=== PATIENT | male | born 1960 | race Caucasian/White ===

== ENCOUNTER 2021-06-30 13:24 | Inpatient (IN) | payer OTHER ==
[~2021-06-30] VITALS: Ht 177.8 cm; Wt 192.8 kg
[2021-06-30] MEDS ORDERED: ONDANSETRON HCL INJ 2MG/ML 2ML 2 MG/ML VIAL IV PRN ×3 (13:45→20:15)
[2021-06-30 14:11] LABS: BASOPHILS % 0.2 % (0.0-1.0); HEMOGLOBIN 16.1 g/dL (14.0-18.0); LYMPHOCYTES # (AUTO) 0.6 (1.0-3.2); LYMPHOCYTES % 3.7 % (18.0-39.1); MEAN CORPUSCULAR HEMOGLOBIN 32.2 pg (28-32); MEAN CORPUSCULAR HGB CONC 34.3 g/dL (31-35); MONOCYTES # (AUTO) 1.8 (0.2-0.8); MONOCYTES % 11.6 % (4.4-11.3); NEUTROPHILS # (AUTO) 12.8 (2.1-6.9); NEUTROPHILS % 83.5 % (38.7-80.0); PLATELET COUNT 94 x10e3/uL (140-360); RED CELL DISTRIBUTION WIDTH 13.2 % (11.7-14.4)
[2021-06-30 14:27] LABS: ALBUMIN 2.8 g/dL (3.5-5.0); ALBUMIN/GLOBULIN RATIO 0.7 (0.8-2.0); ANION GAP 9.7 mmol/L (8-16); CALCIUM 8.4 mg/dL (8.4-10.2); CREATININE, SERUM 1.14 mg/dL (0.72-1.25); POTASSIUM 3.7 mmol/L (3.5-5.1)
[2021-06-30 14:31] LABS: CLARITY,URINE SL CLOUDY (CLEAR); COLOR,URINE AMBER (YELLOW); KETONES,URINE NEGATIVE (NEGATIVE); LEUKOCYTE ESTERASE ,URINE NEGATIVE (NEGATIVE); NITRITE,URINE NEGATIVE (NEGATIVE); PROTEIN,URINE DIPSTICK NEGATIVE (NEGATIVE); URINE UROBILINOGEN 1 mg/dL (0.2 - 1)
[2021-06-30 14:44] LABS: BACTERIA,URINE MODERATE /HPF; RBC,URINE 0-5 /HPF (0-5)
[2021-06-30] MEDS ORDERED: SODIUM CHLORIDE 0.9% 1000ML 1,000 ML IV SCH ×2 (14:45→15:45)
[2021-06-30] MEDS: CEFEPIME 1 GM in SODIUM CHLORIDE 0.9% 50ML 50 ML IV SCH (15:55)
[2021-06-30] MEDS ORDERED: ALBUTEROL SULFATE HFA 8GM INHALATION AEROSOL INH PRN (16:00)
[2021-06-30] MEDS ORDERED: ALBUTEROL SULF 0.083% NEB SOLN 3 ML NEB NEB PRN (16:00)
[2021-06-30 16:09] LABS: INR 1.42; PROTHROMBIN TIME 18.5 seconds (11.9-14.5)
[2021-06-30 16:10] LABS: PARTIAL THROMBOPLASTIN TIME 33.5 seconds (23.8-35.5)
[2021-06-30] MEDS ORDERED: IOPAMIDOL 370 MG/ML 100 ML INFUS..BTL INJ ONE (16:41)
[2021-06-30] MEDS ORDERED: SODIUM CHLORIDE 0.9% 50ML 50 ML ONE (16:41)
[2021-06-30] MEDS ORDERED: PHYTONADIONE 10 MG/ML AMP IV ONE (17:00)
[2021-06-30 18:12] LABS: BASOPHILS % 0.2 % (0.0-1.0); HEMATOCRIT 47.1 % (38.2-49.6); HEMOGLOBIN 16.5 g/dL (14.0-18.0); LYMPHOCYTES # (AUTO) 0.5 (1.0-3.2); LYMPHOCYTES % 3.7 % (18.0-39.1); MEAN CORPUSCULAR HEMOGLOBIN 33.1 pg (28-32); MEAN CORPUSCULAR VOLUME 94.4 fL (81-99); MONOCYTES # (AUTO) 0.4 (0.2-0.8); MONOCYTES % 2.7 % (4.4-11.3); NEUTROPHILS % 92.1 % (38.7-80.0); RED BLOOD COUNT 4.99 x10e6/uL (4.3-5.7); RED CELL DISTRIBUTION WIDTH 13.2 % (11.7-14.4)
[2021-06-30 18:13] LABS: PLATELET COUNT 94 x10e3/uL (140-360)
[2021-06-30] MEDS ORDERED: BUDESONIDE/FORMOTEROL 160/4.5MCG INHALER INH SCH (19:00)
[2021-06-30 19:38] VITALS: BP 146/73
[2021-06-30 19:44] VITALS: BP 146/73
[2021-06-30] MEDS ORDERED: PHYTONADIONE 10MG/ML 20 MG in SODIUM CHLORIDE 0.9% 50ML 50 ML IV ONE (20:00)
[2021-06-30] MEDS ORDERED: ALBUTEROL/IPRATROPIUM 3 ML NEB NEB PRN (20:15)
[2021-06-30] MEDS: FUROSEMIDE INJ 10 MG/ML 4 ML VIAL IV SCH ×2 (20:49→21:16)
[2021-06-30] MEDS: METHYLPREDNISOLONE SOD SUCC 40 MG/ML VIAL 1ML IV SCH (20:50)
[2021-06-30] MEDS ORDERED: ZOLPIDEM TARTRATE 5 MG TAB PO PRN (21:00)
[2021-06-30] MEDS: ALBUTEROL/IPRATROPIUM 3 ML NEB NEB SCH (21:26)
[2021-06-30] MEDS ORDERED: ACETAMINOPHEN 325 MG TAB PO PRN (21:30)
[2021-06-30 22:03] VITALS: BP 146/73
[2021-07-01] VITALS (7 sets, daily range): BP systolic 98–146; BP diastolic 53–83
[2021-07-01] MEDS: ALBUTEROL/IPRATROPIUM 3 ML NEB NEB SCH ×5 (00:14→23:37)
[2021-07-01] MEDS ORDERED: OCTREOTIDE ACETATE 0.05 MG/ML AMP IV ONE (01:45)
[2021-07-01] MEDS ORDERED: OCTREOTIDE ACETATE 500 MCG in SODIUM CHLORIDE 0.9% 250ML 249 ML IV SCH (01:45)
[2021-07-01] MEDS: CEFEPIME 1 GM in SODIUM CHLORIDE 0.9% 50ML 50 ML IV SCH ×2 (02:32→15:10)
[2021-07-01] MEDS: OCTREOTIDE ACETATE 500 MCG in SODIUM CHLORIDE 0.9% 250ML 250 ML IV SCH ×3 (03:45→20:41)
[2021-07-01] MEDS: FUROSEMIDE INJ 10 MG/ML 4 ML VIAL IV SCH ×3 (05:29→21:09)
[2021-07-01 05:30] LABS: BASOPHILS % 0.1 % (0.0-1.0); HEMATOCRIT 47.8 % (38.2-49.6); HEMOGLOBIN 16.1 g/dL (14.0-18.0); LYMPHOCYTES # (AUTO) 0.6 (1.0-3.2); MEAN CORPUSCULAR HEMOGLOBIN 32.5 pg (28-32); MEAN CORPUSCULAR HGB CONC 33.7 g/dL (31-35); MEAN CORPUSCULAR VOLUME 96.4 fL (81-99); MONOCYTES # (AUTO) 0.9 (0.2-0.8); MONOCYTES % 6.1 % (4.4-11.3); NEUTROPHILS # (AUTO) 12.6 (2.1-6.9); NEUTROPHILS % 88.5 % (38.7-80.0); PLATELET COUNT 86 x10e3/uL (140-360); RED BLOOD COUNT 4.96 x10e6/uL (4.3-5.7); RED CELL DISTRIBUTION WIDTH 13.3 % (11.7-14.4)
[2021-07-01 05:41] LABS: INR 1.27
[2021-07-01 05:44] LABS: ANION GAP 11.5 mmol/L (8-16); CALCIUM 8.3 mg/dL (8.4-10.2); CREATININE, SERUM 1.07 mg/dL (0.72-1.25); POTASSIUM 4.5 mmol/L (3.5-5.1)
[2021-07-01] MEDS ORDERED: Morphine 4mg Syringe 4 MG/ML INJ IV PRN (09:00)
[2021-07-01] MEDS: LIDOCAINE 4% PATCH TP SCH (09:36)
[2021-07-01] MEDS: METHYLPREDNISOLONE SOD SUCC 40 MG/ML VIAL 1ML IV SCH ×2 (09:36→20:41)
[2021-07-01] MEDS ORDERED: LIDOCAINE HCL 2% LOCAL INJ 5 ML SDV VIAL INJ ONE (11:52)
[2021-07-01] MEDS ORDERED: PROPOFOL IV EMULSION 10 MG/ML 20 ML VIAL ONE (11:52)
[2021-07-01] MEDS ORDERED: BENZOCAINE/TETRACAINE/BUTAMBEN AERO SPRAY 56 GM CAN ONE (12:19)
[2021-07-01] MEDS: HYDROCODONE/APAP 10MG-325MG TAB PO PRN ×2 (13:44→20:41)
[2021-07-01] MEDS ORDERED: SODIUM CHLORIDE 0.9% 250ML 250 ML ONE (15:13)
[2021-07-01] MEDS: PROPRANOLOL HCL 10 MG TAB PO SCH (16:00)
[2021-07-02] VITALS (9 sets, daily range): BP systolic 113–142; BP diastolic 55–99
[2021-07-02] MEDS: CEFEPIME 1 GM in SODIUM CHLORIDE 0.9% 50ML 50 ML IV SCH (02:22)
[2021-07-02] MEDS: OCTREOTIDE ACETATE 500 MCG in SODIUM CHLORIDE 0.9% 250ML 250 ML IV SCH ×3 (02:30→17:42)
[2021-07-02] MEDS: FUROSEMIDE INJ 10 MG/ML 4 ML VIAL IV SCH ×2 (05:43→12:16)
[2021-07-02 06:12] LABS: BASOPHILS % 0.2 % (0.0-1.0); HEMATOCRIT 46.6 % (38.2-49.6); HEMOGLOBIN 15.5 g/dL (14.0-18.0); LYMPHOCYTES # (AUTO) 0.8 (1.0-3.2); LYMPHOCYTES % 6.3 % (18.0-39.1); MEAN CORPUSCULAR HEMOGLOBIN 32.2 pg (28-32); MEAN CORPUSCULAR HGB CONC 33.3 g/dL (31-35); MEAN CORPUSCULAR VOLUME 96.9 fL (81-99); MONOCYTES % 7.7 % (4.4-11.3); NEUTROPHILS # (AUTO) 11.3 (2.1-6.9); NEUTROPHILS % 85.1 % (38.7-80.0); PLATELET COUNT 95 x10e3/uL (140-360); RED BLOOD COUNT 4.81 x10e6/uL (4.3-5.7); RED CELL DISTRIBUTION WIDTH 13.4 % (11.7-14.4)
[2021-07-02 06:29] LABS: ANION GAP 11.6 mmol/L (8-16); CREATININE, SERUM 1.13 mg/dL (0.72-1.25); POTASSIUM 4.6 mmol/L (3.5-5.1)
[2021-07-02] MEDS: ALBUTEROL/IPRATROPIUM 3 ML NEB NEB SCH ×3 (06:50→19:00)
[2021-07-02] MEDS ORDERED: LEVOFLOXACIN 500 MG TAB PO NR (10:00)
[2021-07-02] MEDS ORDERED: LEVOFLOXACIN 500 MG TAB PO SCH (10:00)
[2021-07-02] MEDS: HYDROCODONE/APAP 10MG-325MG TAB PO PRN (10:33)
[2021-07-02] MEDS: METHYLPREDNISOLONE SOD SUCC 40 MG/ML VIAL 1ML IV SCH ×2 (10:35→21:07)
[2021-07-02] MEDS: PROPRANOLOL HCL 10 MG TAB PO SCH ×2 (10:35→17:03)
[2021-07-02] MEDS: LIDOCAINE 4% PATCH TP SCH (10:36)
[2021-07-03] VITALS (8 sets, daily range): BP systolic 103–136; BP diastolic 57–83
[2021-07-03] MEDS: ALBUTEROL/IPRATROPIUM 3 ML NEB NEB SCH ×5 (02:00→23:49)
[2021-07-03] MEDS: OCTREOTIDE ACETATE 500 MCG in SODIUM CHLORIDE 0.9% 250ML 250 ML IV SCH (03:43)
[2021-07-03 06:03] LABS: BASOPHILS % 0.1 % (0.0-1.0); HEMATOCRIT 45.4 % (38.2-49.6); HEMOGLOBIN 15.3 g/dL (14.0-18.0); LYMPHOCYTES # (AUTO) 0.9 (1.0-3.2); LYMPHOCYTES % 10.6 % (18.0-39.1); MEAN CORPUSCULAR HEMOGLOBIN 32.6 pg (28-32); MEAN CORPUSCULAR HGB CONC 33.7 g/dL (31-35); MEAN CORPUSCULAR VOLUME 96.6 fL (81-99); MONOCYTES # (AUTO) 0.6 (0.2-0.8); MONOCYTES % 6.9 % (4.4-11.3); NEUTROPHILS # (AUTO) 6.9 (2.1-6.9); NEUTROPHILS % 81.9 % (38.7-80.0); PLATELET COUNT 112 x10e3/uL (140-360); RED CELL DISTRIBUTION WIDTH 13.4 % (11.7-14.4)
[2021-07-03 06:35] LABS: ALBUMIN 2.7 g/dL (3.5-5.0); ALBUMIN/GLOBULIN RATIO 0.7 (0.8-2.0); ANION GAP 8.3 mmol/L (8-16); CALCIUM 7.7 mg/dL (8.4-10.2); CREATININE, SERUM 0.95 mg/dL (0.72-1.25); POTASSIUM 4.3 mmol/L (3.5-5.1)
[2021-07-03] MEDS: FUROSEMIDE INJ 10 MG/ML 4 ML VIAL IV SCH ×2 (08:49→11:32)
[2021-07-03] MEDS: LIDOCAINE 4% PATCH TP SCH (08:50)
[2021-07-03] MEDS: METHYLPREDNISOLONE SOD SUCC 40 MG/ML VIAL 1ML IV SCH ×2 (08:50→20:59)
[2021-07-03] MEDS: PROPRANOLOL HCL 10 MG TAB PO SCH ×2 (08:50→17:31)
[2021-07-03] MEDS: HYDROCODONE/APAP 10MG-325MG TAB PO PRN (08:57)
[2021-07-03] MEDS: PANTOPRAZOLE SOD 40 MG TABEC PO SCH ×2 (11:30→17:31)
[2021-07-03] MEDS: LEVOFLOXACIN 500 MG TAB PO SCH (11:30)
[2021-07-03] MEDS: SUCRALFATE 1 GM TAB PO SCH ×3 (11:31→22:02)
[2021-07-04] VITALS: BP 133/76
[2021-07-04] MEDS: HYDROCODONE/APAP 10MG-325MG TAB PO PRN (03:59)
[2021-07-04 04:00] VITALS: BP 140/86
[2021-07-04] MEDS: ALBUTEROL/IPRATROPIUM 3 ML NEB NEB SCH ×2 (07:00→13:00)
[2021-07-04] MEDS ORDERED: PANTOPRAZOLE SOD 40 MG TABEC PO SCH (07:30)
[2021-07-04 08:20] VITALS: BP 124/65
[2021-07-04 08:23] VITALS: BP 124/65
[2021-07-04] MEDS: SUCRALFATE 1 GM TAB PO SCH ×3 (08:55→17:38)
[2021-07-04] MEDS: METHYLPREDNISOLONE SOD SUCC 40 MG/ML VIAL 1ML IV SCH (08:56)
[2021-07-04] MEDS: FUROSEMIDE INJ 10 MG/ML 4 ML VIAL IV SCH ×2 (08:56→11:26)
[2021-07-04] MEDS: PANTOPRAZOLE SOD 40 MG TABEC PO SCH ×2 (08:56→17:38)
[2021-07-04] MEDS: LIDOCAINE 4% PATCH TP SCH (08:56)
[2021-07-04] MEDS: LEVOFLOXACIN 500 MG TAB PO SCH (08:57)
[2021-07-04] MEDS: PROPRANOLOL HCL 10 MG TAB PO SCH ×2 (08:57→17:38)
[2021-07-04 11:43] VITALS: BP 119/72
[2021-07-04 16:10] VITALS: BP 127/66
[2021-07-04] MEDS ORDERED: XIFAXAN550 MG PO (17:04)
[2021-07-04] MEDS ORDERED: LASIX40 MG PO (17:04)
[2021-07-04] MEDS ORDERED: CARAFATE1 GM/10 ML PO (17:05)
[2021-07-04] MEDS ORDERED: PANTOPRAZOLE SO40 MG PO (17:05)
[2021-07-04] MEDS ORDERED: TRELEGY ELLIPT1 EACH INH (17:25)
[2021-07-04] MEDS ORDERED: PROAIR HFA INH8.5 GM INH (17:26)
[2021-07-04] MEDS ORDERED: INDERAL10 MG PO (17:26)
[2021-07-04] MEDS ORDERED: TRAMADOL HCL100 MG PO (17:27)
[2021-07-04] MEDS ORDERED: tessalon perles PO (17:28)
[2021-07-04] MEDS ORDERED: medrol dose pack (17:28)
[2021-07-04] MEDS ORDERED: ONDANSETRON HCL 4 MG ORAL DISINTEGRATING TAB PO PRN (18:00)
== END 2021-07-04 18:29 | disposition home or self-care (01) | DRG 871 ==
LOC: ER 13:33 → ERHOLD 15:40 → MED/SURG2 17:48
PROVIDERS: ADMIT Internal Medicine; ATTEND Internal Medicine
PROC: 3E03329 Introduction of Other Anti-infective into Peripheral Vein, Percutaneous Approach (ICD-10-PCS; principal; 2021-06-30)
PROC: 0DB68ZX Excision of Stomach, Via Natural or Artificial Opening Endoscopic, Diagnostic (ICD-10-PCS; 2021-07-01 12:16)
PROC: 06L38CZ Occlusion of Esophageal Vein with Extraluminal Device, Via Natural or Artificial Opening Endoscopic (ICD-10-PCS; 2021-07-01 12:16)
DX: A41.9 Sepsis, unspecified organism (principal); I50.33 Acute on chronic diastolic (congestive) heart failure; I85.01 Esophageal varices with bleeding; N39.0 Urinary tract infection, site not specified; K76.6 Portal hypertension; Z68.44 Body mass index [BMI] 60.0-69.9, adult; J44.1 Chronic obstructive pulmonary disease with (acute) exacerbation; N41.0 Acute prostatitis; I11.0 Hypertensive heart disease with heart failure; E78.5 Hyperlipidemia, unspecified; E66.01 Morbid (severe) obesity due to excess calories; R06.89 Other abnormalities of breathing; K31.89 Other diseases of stomach and duodenum; K44.9 Diaphragmatic hernia without obstruction or gangrene; K31.7 Polyp of stomach and duodenum; K26.9 Duodenal ulcer, unspecified as acute or chronic, without hemorrhage or perforation; G47.33 Obstructive sleep apnea (adult) (pediatric); K70.30 Alcoholic cirrhosis of liver without ascites; F10.10 Alcohol abuse, uncomplicated; R09.02 Hypoxemia; D69.6 Thrombocytopenia, unspecified; Z20.822 Contact with and (suspected) exposure to COVID-19
CPT/HCPCS: 36415; 43239; 43255; 71045; 71250; 74177; 80048; 80053; 81001; 82948; 83036; 83605; 83690; 83880; 85025; 85610; 85730; 87040; 87521; 88304; 88305; 88312; 93005; 93306; 94799; 99285; J0456; J0692; J1940; J2001; J2353; J2354; J2405; J2920; J3430; J7030; J7050; Q9967; U0002

== ENCOUNTER 2022-01-21 03:08 | Inpatient (IN) | payer OTHER ==
[~2022-01-21] VITALS: Ht 180.3 cm; Wt 192.8 kg
[~2022-01-21 03:08] MED LIST: CARAFATE1 GM/10 ML PO; INDERAL10 MG PO; LASIX40 MG PO; PANTOPRAZOLE SO40 MG PO; PROAIR HFA INH8.5 GM INH; TRAMADOL HCL100 MG PO; TRELEGY ELLIPT1 EACH INH; XIFAXAN550 MG PO; medrol dose pack; tessalon perles PO
[2022-01-21] MEDS ORDERED: ACETAMINOPHEN 325 MG TAB PO ONE (03:15)
[2022-01-21 03:38] LABS: BASOPHILS % 0.5 % (0.0-1.0); EOSINOPHILS # (AUTO) 0.4 (0.0-0.4); EOSINOPHILS % 4.7 % (0.0-6.0); HEMOGLOBIN 15.6 g/dL (14.0-18.0); LYMPHOCYTES # (AUTO) 1.4 (1.0-3.2); LYMPHOCYTES % 16.8 % (18.0-39.1); MEAN CORPUSCULAR HGB CONC 33.2 g/dL (31-35); MEAN CORPUSCULAR VOLUME 96.3 fL (81-99); MONOCYTES # (AUTO) 1.7 (0.2-0.8); NEUTROPHILS # (AUTO) 4.6 (2.1-6.9); NEUTROPHILS % 56.6 % (38.7-80.0); PLATELET COUNT 107 x10e3/uL (140-360); RED BLOOD COUNT 4.88 x10e6/uL (4.3-5.7); RED CELL DISTRIBUTION WIDTH 13.3 % (11.7-14.4)
[2022-01-21 03:55] LABS: ALBUMIN 2.8 g/dL (3.5-5.0); ALBUMIN/GLOBULIN RATIO 0.7 (0.8-2.0); ANION GAP 13.1 mmol/L (8-16); CALCIUM 8.4 mg/dL (8.4-10.2); CREATININE, SERUM 0.83 mg/dL (0.72-1.25); POTASSIUM 4.1 mmol/L (3.5-5.1)
[2022-01-21 04:01] LABS: CREATINE KINASE MB 2.9 ng/mL (0-5.0)
[2022-01-21] MEDS ORDERED: DEXAMETHASONE SOD PHOS 10 MG/1 ML VIAL IV STA (04:12)
[2022-01-21] MEDS ORDERED: SODIUM CHLORIDE FLUSH 10 ML SYR INJ PRN (04:15)
[2022-01-21] MEDS ORDERED: ACETAMINOPHEN 325 MG TAB PO PRN (04:15)
[2022-01-21] MEDS ORDERED: ONDANSETRON HCL INJ 2MG/ML 2ML 2 MG/ML VIAL IV PRN (04:15)
[2022-01-21] MEDS: ALBUTEROL/IPRATROPIUM 3 ML NEB NEB SCH ×5 (06:30→23:55)
[2022-01-21 08:00] VITALS: BP 159/85
[2022-01-21 08:01] VITALS: BP 159/85
[2022-01-21 08:21] VITALS: BP 159/85
[2022-01-21 09:51] LABS: CREATINE KINASE MB 2.9 ng/mL (0-5.0)
[2022-01-21] MEDS: FUROSEMIDE INJ 10 MG/ML 4 ML VIAL IV SCH ×2 (10:01→21:31)
[2022-01-21 11:23] VITALS: BP 158/82
[2022-01-21] MEDS ORDERED: REMDESIVIR 200MG 200 MG in SODIUM CHLORIDE 0.9% 100 ML IV ONE (15:00)
[2022-01-21 15:57] VITALS: BP 158/80
[2022-01-21 18:00] LABS: CREATINE KINASE MB 2.8 ng/mL (0-5.0)
[2022-01-21 20:00] VITALS: BP 177/93
[2022-01-21] MEDS ORDERED: DEXAMETHASONE SOD PHOS 10 MG/1 ML VIAL IV SCH (21:00)
[2022-01-21] MEDS: HYDROCODONE/APAP 5MG-325MG TAB PO PRN (21:31)
[2022-01-21] MEDS: ENOXAPARIN SOD INJ 40 MG/0.4 ML SYR SC SCH (21:31)
[2022-01-22] VITALS (7 sets, daily range): BP systolic 127–154; BP diastolic 65–97
[2022-01-22] MEDS: HYDROCODONE/APAP 5MG-325MG TAB PO PRN ×2 (01:18→09:02)
[2022-01-22] MEDS: ALBUTEROL/IPRATROPIUM 3 ML NEB NEB SCH ×6 (03:00→23:15)
[2022-01-22] MEDS: DEXAMETHASONE SOD PHOS 10 MG/1 ML VIAL IV SCH (04:43)
[2022-01-22 07:17] LABS: BASOPHILS % 0.1 % (0.0-1.0); HEMATOCRIT 46.1 % (38.2-49.6); HEMOGLOBIN 15.3 g/dL (14.0-18.0); LYMPHOCYTES % 11.7 % (18.0-39.1); MEAN CORPUSCULAR HEMOGLOBIN 31.7 pg (28-32); MEAN CORPUSCULAR HGB CONC 33.2 g/dL (31-35); MEAN CORPUSCULAR VOLUME 95.4 fL (81-99); MONOCYTES # (AUTO) 0.8 (0.2-0.8); NEUTROPHILS # (AUTO) 6.4 (2.1-6.9); PLATELET COUNT 115 x10e3/uL (140-360); RED BLOOD COUNT 4.83 x10e6/uL (4.3-5.7); RED CELL DISTRIBUTION WIDTH 12.7 % (11.7-14.4)
[2022-01-22 07:52] LABS: ALBUMIN 2.9 g/dL (3.5-5.0); ALBUMIN/GLOBULIN RATIO 0.7 (0.8-2.0); CALCIUM 8.4 mg/dL (8.4-10.2); CREATININE, SERUM 0.77 mg/dL (0.72-1.25)
[2022-01-22] MEDS: FUROSEMIDE INJ 10 MG/ML 4 ML VIAL IV SCH ×2 (08:21→20:21)
[2022-01-22] MEDS: ENOXAPARIN SOD INJ 40 MG/0.4 ML SYR SC SCH ×2 (08:22→20:21)
[2022-01-22 09:36] LABS: CREATINE KINASE MB 2.2 ng/mL (0-5.0)
[2022-01-22] MEDS: REMDESIVIR 100MG 100 MG in SODIUM CHLORIDE 0.9% 100 ML IV SCH (14:32)
[2022-01-22] MEDS: TRAMADOL HCL 50 MG TAB PO PRN (18:41)
[2022-01-23] MEDS: ALBUTEROL/IPRATROPIUM 3 ML NEB NEB SCH ×4 (03:10→15:00)
[2022-01-23 04:00] VITALS: BP 131/58
[2022-01-23] MEDS: DEXAMETHASONE SOD PHOS 10 MG/1 ML VIAL IV SCH (05:25)
[2022-01-23] MEDS: TRAMADOL HCL 50 MG TAB PO PRN ×2 (05:25→14:30)
[2022-01-23 05:42] LABS: HEMATOCRIT 47.1 % (38.2-49.6); HEMOGLOBIN 15.7 g/dL (14.0-18.0); LYMPHOCYTES # (AUTO) 1.2 (1.0-3.2); LYMPHOCYTES % 13.2 % (18.0-39.1); MEAN CORPUSCULAR HEMOGLOBIN 32.1 pg (28-32); MEAN CORPUSCULAR HGB CONC 33.3 g/dL (31-35); MEAN CORPUSCULAR VOLUME 96.3 fL (81-99); MONOCYTES # (AUTO) 0.8 (0.2-0.8); MONOCYTES % 8.9 % (4.4-11.3); NEUTROPHILS % 77.6 % (38.7-80.0); PLATELET COUNT 120 x10e3/uL (140-360); RED BLOOD COUNT 4.89 x10e6/uL (4.3-5.7); RED CELL DISTRIBUTION WIDTH 13.2 % (11.7-14.4)
[2022-01-23 06:23] LABS: ALBUMIN 2.7 g/dL (3.5-5.0); ALBUMIN/GLOBULIN RATIO 0.7 (0.8-2.0); ANION GAP 10.2 mmol/L (8-16); CALCIUM 8.2 mg/dL (8.4-10.2); CREATININE, SERUM 0.82 mg/dL (0.72-1.25); POTASSIUM 4.2 mmol/L (3.5-5.1)
[2022-01-23] MEDS: FUROSEMIDE INJ 10 MG/ML 4 ML VIAL IV SCH (08:19)
[2022-01-23 08:33] VITALS: BP 142/93
[2022-01-23] MEDS ORDERED: LASIX40 MG PO (08:34)
[2022-01-23] MEDS ORDERED: ULTRAM 50MG50 MG PO (08:34)
[2022-01-23] MEDS ORDERED: BROMFED DM COU118 ML PO (08:34)
[2022-01-23] MEDS ORDERED: AMOX TR-K CLV1 EAC2 PO (08:34)
[2022-01-23] MEDS ORDERED: DEXAMETHASONE4 MG PO (08:34)
[2022-01-23 08:37] VITALS: BP 142/93
[2022-01-23] MEDS: ENOXAPARIN SOD INJ 40 MG/0.4 ML SYR SC SCH (08:39)
[2022-01-23] MEDS: REMDESIVIR 100MG 100 MG in SODIUM CHLORIDE 0.9% 100 ML IV SCH (09:41)
[2022-01-23 12:02] VITALS: BP 126/57
[2022-01-23] MEDS ORDERED: ONDANSETRON HCL 4 MG ORAL DISINTEGRATING TAB PO PRN (12:45)
[2022-01-23 16:02] VITALS: BP 145/73
[2022-01-23] MEDS ORDERED: FUROSEMIDE 40 MG TAB PO SCH (21:00)
[2022-01-24] MEDS ORDERED: AZITHROMYCIN 250 MG TAB PO SCH (06:00)
== END 2022-01-23 19:02 | disposition home or self-care (01) | DRG 177 ==
LOC: ER 03:12 → ERHOLD 04:19 → MED/SURG3 07:49
PROVIDERS: ADMIT Internal Medicine; ATTEND Internal Medicine
PROC: 8E0ZXY6 Isolation (ICD-10-PCS; 2022-01-21)
PROC: XW043E5 Introduction of Remdesivir Anti-infective into Central Vein, Percutaneous Approach, New Technology Group 5 (ICD-10-PCS; principal; 2022-01-22)
DX: U07.1 COVID-19 (principal); J12.82 Pneumonia due to coronavirus disease 2019; J96.01 Acute respiratory failure with hypoxia; Z68.43 Body mass index [BMI] 50.0-59.9, adult; J44.1 Chronic obstructive pulmonary disease with (acute) exacerbation; E66.2 Morbid (severe) obesity with alveolar hypoventilation; K21.9 Gastro-esophageal reflux disease without esophagitis; J44.9 Chronic obstructive pulmonary disease, unspecified; E66.9 Obesity, unspecified; B18.2 Chronic viral hepatitis C; B19.20 Unspecified viral hepatitis C without hepatic coma; K70.30 Alcoholic cirrhosis of liver without ascites; Z87.19 Personal history of other diseases of the digestive system; Z86.19 Personal history of other infectious and parasitic diseases; N40.0 Benign prostatic hyperplasia without lower urinary tract symptoms; D69.59 Other secondary thrombocytopenia; I11.0 Hypertensive heart disease with heart failure; I50.9 Heart failure, unspecified
CPT/HCPCS: 36415; 71045; 80053; 82550; 82553; 83605; 83735; 83880; 84484; 85025; 87040; 87400; 93005; 94799; 99285; J0248; J0456; J0696; J1100; J1650; J1940; J7050

== ENCOUNTER 2022-04-27 20:42 | Inpatient (IN) | payer OTHER ==
[~2022-04-27] VITALS: Ht 180.3 cm; Wt 208.2 kg
[2022-04-27 20:00] VITALS: BP 157/88
[~2022-04-27 20:42] MED LIST changes: +AMOX TR-K CLV1 EAC2 PO; +BROMFED DM COU118 ML PO; +DEXAMETHASONE4 MG PO; +ULTRAM 50MG50 MG PO
[2022-04-27 21:57] VITALS: BP 157/88
[2022-04-27 22:28] LABS: BASOPHILS % 0.5 % (0.0-1.0); HEMATOCRIT 50.3 % (38.2-49.6); HEMOGLOBIN 16.2 g/dL (14.0-18.0); LYMPHOCYTES # (AUTO) 0.5 (1.0-3.2); LYMPHOCYTES % 12.3 % (18.0-39.1); MEAN CORPUSCULAR HEMOGLOBIN 31.7 pg (28-32); MEAN CORPUSCULAR HGB CONC 32.2 g/dL (31-35); MEAN CORPUSCULAR VOLUME 98.4 fL (81-99); MONOCYTES # (AUTO) 0.1 (0.2-0.8); MONOCYTES % 2.2 % (4.4-11.3); NEUTROPHILS # (AUTO) 3.5 (2.1-6.9); PLATELET COUNT 107 x10e3/uL (140-360); RED BLOOD COUNT 5.11 x10e6/uL (4.3-5.7)
[2022-04-27 22:46] LABS: ALBUMIN 3.3 g/dL (3.5-5.0); ALBUMIN/GLOBULIN RATIO 0.7 (0.8-2.0); ANION GAP 13.1 mmol/L (8-16); CALCIUM 8.9 mg/dL (8.4-10.2); CREATININE, SERUM 0.81 mg/dL (0.72-1.25); POTASSIUM 4.1 mmol/L (3.5-5.1)
[2022-04-27] MEDS ORDERED: ACETAMINOPHEN 325 MG TAB PO PRN (23:30)
[2022-04-28] VITALS (9 sets, daily range): BP systolic 114–160; BP diastolic 46–87
[2022-04-28] MEDS: ALBUTEROL/IPRATROPIUM 3 ML NEB NEB PRN (00:25)
[2022-04-28 07:41] LABS: ANION GAP 12.2 mmol/L (8-16); CALCIUM 8.5 mg/dL (8.4-10.2); CREATININE, SERUM 0.71 mg/dL (0.72-1.25); POTASSIUM 4.2 mmol/L (3.5-5.1)
[2022-04-28] MEDS: FUROSEMIDE INJ 10 MG/ML 2 ML VIAL IV SCH ×2 (09:29→18:15)
[2022-04-28] MEDS ORDERED: DOCUSATE SODIUM 100 MG CAP PO PRN (11:15)
[2022-04-28] MEDS ORDERED: ONDANSETRON HCL INJ 2MG/ML 2ML 2 MG/ML VIAL IV PRN (11:15)
[2022-04-28] MEDS: SUCRALFATE 1 GM/10 ML SUSP PO SCH ×3 (11:30→21:55)
[2022-04-28] MEDS: PANTOPRAZOLE SOD 40 MG TABEC PO SCH (18:14)
[2022-04-28] MEDS: PROPRANOLOL HCL 10 MG TAB PO SCH (18:15)
[2022-04-28] MEDS: RIFAXIMIN 550 MG TABLET PO SCH (18:15)
[2022-04-28] MEDS: TRAMADOL HCL 50 MG TAB PO PRN (18:22)
[2022-04-28] MEDS: PREDNISONE 20 MG TAB PO SCH (21:54)
[2022-04-28] MEDS ORDERED: SODIUM CHLORIDE 0.9% 250ML 250 ML ONE (22:02)
[2022-04-29] VITALS: BP 123/67
[2022-04-29] MEDS: ALBUTEROL/IPRATROPIUM 3 ML NEB NEB PRN (01:27)
[2022-04-29 04:00] VITALS: BP 136/74
[2022-04-29 05:55] LABS: BASOPHILS % 0.3 % (0.0-1.0); EOSINOPHILS % 0.5 % (0.0-6.0); HEMOGLOBIN 15.2 g/dL (14.0-18.0); LYMPHOCYTES # (AUTO) 1.1 (1.0-3.2); MEAN CORPUSCULAR HEMOGLOBIN 31.7 pg (28-32); MEAN CORPUSCULAR HGB CONC 33.8 g/dL (31-35); MEAN CORPUSCULAR VOLUME 93.8 fL (81-99); MONOCYTES # (AUTO) 0.6 (0.2-0.8); MONOCYTES % 9.8 % (4.4-11.3); NEUTROPHILS # (AUTO) 4.5 (2.1-6.9); NEUTROPHILS % 71.1 % (38.7-80.0); PLATELET COUNT 117 x10e3/uL (140-360); RED CELL DISTRIBUTION WIDTH 13.5 % (11.7-14.4)
[2022-04-29] MEDS ORDERED: VILANTER INH SCH (06:00)
[2022-04-29] MEDS ORDERED: FLUTICASONE INH SCH (06:00)
[2022-04-29] MEDS ORDERED: UMECLIDIN INH SCH (06:00)
[2022-04-29 06:33] LABS: ALBUMIN 2.9 g/dL (3.5-5.0); ALBUMIN/GLOBULIN RATIO 0.8 (0.8-2.0); ANION GAP 10.1 mmol/L (8-16); CALCIUM 8.6 mg/dL (8.4-10.2); CREATININE, SERUM 0.79 mg/dL (0.72-1.25); MAGNESIUM 1.9 MG/DL (1.3-2.1); POTASSIUM 4.1 mmol/L (3.5-5.1)
[2022-04-29 08:00] VITALS: BP 127/72
[2022-04-29] MEDS: PANTOPRAZOLE SOD 40 MG TABEC PO SCH (08:30)
[2022-04-29] MEDS: SUCRALFATE 1 GM/10 ML SUSP PO SCH ×2 (08:30→11:30)
[2022-04-29 08:32] VITALS: BP 127/72
[2022-04-29] MEDS ORDERED: DOCUSATE SODIUM 100 MG CAP PO SCH (09:00)
[2022-04-29] MEDS ORDERED: SENNOSIDES 8.6 MG TAB PO SCH (09:00)
[2022-04-29] MEDS: PROPRANOLOL HCL 10 MG TAB PO SCH (09:19)
[2022-04-29] MEDS: FUROSEMIDE INJ 10 MG/ML 2 ML VIAL IV SCH (09:19)
[2022-04-29] MEDS: RIFAXIMIN 550 MG TABLET PO SCH (09:19)
[2022-04-29] MEDS: PREDNISONE 20 MG TAB PO SCH (09:20)
[2022-04-29] MEDS: TRAMADOL HCL 50 MG TAB PO PRN (09:29)
[2022-04-29 10:22] LABS: PLATELET ESTIMATE SLIGHTLY DECREASED; PLATELET MORPHOLOGY COMMENT NORMAL
[2022-04-29 12:17] VITALS: BP 117/63
[2022-04-29] MEDS ORDERED: OLMESARTAN MEDO20 MG PO (13:20)
[2022-04-29] MEDS ORDERED: METOPROLOL SUCC25 MG PO (13:20)
[2022-04-29] MEDS ORDERED: FUROSEMIDE40 MG PO (13:21)
[2022-04-29] MEDS ORDERED: PREDNISONE20 MG PO (13:23)
[2022-04-29] MEDS ORDERED: Albuterol Inhaler INH (13:23)
[2022-04-29] MEDS ORDERED: ZITHROMAX250 MG PO (13:24)
== END 2022-04-29 14:15 | disposition home or self-care (01) | DRG 291 ==
LOC: INTOOBSV 20:42 → MED/SURG3 20:42 → OBSVTOIN 04-28 19:45
PROVIDERS: ADMIT Internal Medicine; ATTEND Internal Medicine
DX: I11.0 Hypertensive heart disease with heart failure (principal); I50.33 Acute on chronic diastolic (congestive) heart failure; J96.21 Acute and chronic respiratory failure with hypoxia; J44.1 Chronic obstructive pulmonary disease with (acute) exacerbation; Z68.44 Body mass index [BMI] 60.0-69.9, adult; J44.0 Chronic obstructive pulmonary disease with (acute) lower respiratory infection; J20.9 Acute bronchitis, unspecified; E66.01 Morbid (severe) obesity due to excess calories; G47.33 Obstructive sleep apnea (adult) (pediatric); K21.9 Gastro-esophageal reflux disease without esophagitis; K70.30 Alcoholic cirrhosis of liver without ascites; B19.20 Unspecified viral hepatitis C without hepatic coma
CPT/HCPCS: 36415; 71045; 71046; 80048; 80053; 83735; 83880; 85025; 93005; 93306; 94640; 94799; G0378; J0456; J0696; J1940; J7050; J7512

== ENCOUNTER 2022-09-23 13:36 | Inpatient (IN) | payer OTHER ==
[~2022-09-23] VITALS: Ht 180.3 cm; Wt 208.2 kg
[~2022-09-23 13:36] MED LIST changes: +Albuterol Inhaler INH; +FUROSEMIDE40 MG PO; +METOPROLOL SUCC25 MG PO; +OLMESARTAN MEDO20 MG PO; +PREDNISONE20 MG PO; +ZITHROMAX250 MG PO
[2022-09-23 13:42] VITALS: PULSE 72; RESP 22; O2SAT 99
[2022-09-23] MEDS ORDERED: ALBUTEROL/IPRATROPIUM 3 ML NEB NEB ONE (13:45)
[2022-09-23] MEDS ORDERED: DEXAMETHASONE SOD PHOS 10 MG/1 ML VIAL IV ONE (14:15)
[2022-09-23] MEDS ORDERED: SODIUM CHLORIDE 0.9% 100 ML ONE (14:48)
[2022-09-23] MEDS ORDERED: DEXAMETHASONE SOD PHOS INJ 4 MG/ML SDV ONE (14:48)
[2022-09-23 15:03] LABS: BASOPHILS # (AUTO) 0.1 (0.0-0.1); BASOPHILS % 0.8 % (0.0-1.0); EOSINOPHILS # (AUTO) 0.2 (0.0-0.4); EOSINOPHILS % 3.2 % (0.0-6.0); HEMATOCRIT 45.9 % (38.2-49.6); HEMOGLOBIN 15.3 g/dL (14.0-18.0); LYMPHOCYTES # (AUTO) 0.6 (1.0-3.2); LYMPHOCYTES % 8.8 % (18.0-39.1); MEAN CORPUSCULAR HEMOGLOBIN 31.7 pg (28-32); MEAN CORPUSCULAR HGB CONC 33.3 g/dL (31-35); MONOCYTES # (AUTO) 1.2 (0.2-0.8); MONOCYTES % 16.4 % (4.4-11.3); NEUTROPHILS # (AUTO) 5.1 (2.1-6.9); NEUTROPHILS % 70.5 % (38.7-80.0); PLATELET COUNT 86 x10e3/uL (140-360); RED BLOOD COUNT 4.83 x10e6/uL (4.3-5.7); RED CELL DISTRIBUTION WIDTH 14.5 % (11.7-14.4)
[2022-09-23 15:16] LABS: INR 1.21; PARTIAL THROMBOPLASTIN TIME 29.6 seconds (23.8-35.5); PROTHROMBIN TIME 16.1 seconds (11.9-14.5)
[2022-09-23 15:30] LABS: ALANINE AMINOTRANSFERASE 24 IU/L (0-55); ALBUMIN 2.8 g/dL (3.5-5.0); ALBUMIN/GLOBULIN RATIO 0.7 (0.8-2.0); ALKALINE PHOSPHATASE 86 IU/L (40-150); ANION GAP 11.9 mmol/L (8-16); BLOOD UREA NITROGEN 8 mg/dL (7-26); BUN/CREATININE RATIO 10 (6-25); CALCIUM 8.5 mg/dL (8.4-10.2); CARBON DIOXIDE 26 mmol/L (22-29); CHLORIDE 107 mmol/L (98-107); CREATINE KINASE 147 IU/L (30-200); CREATININE, SERUM 0.81 mg/dL (0.72-1.25); GLUCOSE 103 mg/dL (74-118); POTASSIUM 4.9 mmol/L (3.5-5.1); SODIUM 140 mmol/L (136-145)
[2022-09-23] MEDS ORDERED: FUROSEMIDE INJ 10 MG/ML 4 ML VIAL IV ONE (16:30)
[2022-09-23] MEDS ORDERED: ONDANSETRON HCL INJ 2MG/ML 2ML 2 MG/ML VIAL IV PRN (16:30)
[2022-09-23] MEDS: FAMOTIDINE 20 MG/2 ML VIAL IV SCH (17:20)
[2022-09-23 17:38] VITALS: BP 185/79; PULSE 60; RESP 16; O2SAT 100
[2022-09-23 17:42] VITALS: BP 185/79; PULSE 60; RESP 16; TEMP 99.5; O2SAT 100
[2022-09-23 17:57] VITALS: BP 149/51; PULSE 74; RESP 28; TEMP 99.5; O2SAT 95
[2022-09-23 20:00] VITALS: BP 154/77; PULSE 69; RESP 24; TEMP 99; O2SAT 93
[2022-09-23 22:20] VITALS: PULSE 77; RESP 22; O2SAT 95
[2022-09-23] MEDS: ALBUTEROL/IPRATROPIUM 3 ML NEB NEB SCH ×2 (22:20→23:00)
[2022-09-24] VITALS (11 sets, daily range): BP systolic 91–146; BP diastolic 45–73; PULSE 52–66; RESP 18–28; TEMP 97.2–98.3; O2SAT 93–98
[2022-09-24] LABS: CREATINE KINASE 145 IU/L (30-200)
[2022-09-24] MEDS: ALBUTEROL/IPRATROPIUM 3 ML NEB NEB SCH ×6 (03:00→20:10)
[2022-09-24] MEDS: FAMOTIDINE 20 MG/2 ML VIAL IV SCH ×2 (04:45→17:23)
[2022-09-24] MEDS: FUROSEMIDE INJ 10 MG/ML 2 ML VIAL IV SCH ×2 (04:45→17:23)
[2022-09-24 05:34] LABS: BASOPHILS % 0.4 % (0.0-1.0); HEMATOCRIT 48.3 % (38.2-49.6); HEMOGLOBIN 15.7 g/dL (14.0-18.0); LYMPHOCYTES # (AUTO) 0.5 (1.0-3.2); LYMPHOCYTES % 9.3 % (18.0-39.1); MEAN CORPUSCULAR HEMOGLOBIN 32.2 pg (28-32); MEAN CORPUSCULAR HGB CONC 32.5 g/dL (31-35); MONOCYTES # (AUTO) 0.5 (0.2-0.8); MONOCYTES % 8.4 % (4.4-11.3); NEUTROPHILS # (AUTO) 4.6 (2.1-6.9); NEUTROPHILS % 81.2 % (38.7-80.0); PLATELET COUNT 89 x10e3/uL (140-360); RED BLOOD COUNT 4.88 x10e6/uL (4.3-5.7)
[2022-09-24 06:02] LABS: CHOL/HDL RATIO 3.5 (3.9-4.7); CREATINE KINASE 168 IU/L (30-200)
[2022-09-24 06:04] LABS: ALBUMIN 2.9 g/dL (3.5-5.0); ALBUMIN/GLOBULIN RATIO 0.7 (0.8-2.0); ANION GAP 11.1 mmol/L (8-16); CALCIUM 8.8 mg/dL (8.4-10.2); CREATININE, SERUM 0.86 mg/dL (0.72-1.25); POTASSIUM 5.1 mmol/L (3.5-5.1)
[2022-09-24] MEDS: METOPROLOL SUCCINATE 25 MG TAB XL PO SCH (08:15)
[2022-09-24] MEDS: OLMESARTAN 20 MG TAB PO SCH (08:16)
[2022-09-24] MEDS ORDERED: ENOXAPARIN SOD INJ 40 MG/0.4 ML SYR SC ONE (09:45)
[2022-09-24] MEDS: TRAMADOL HCL 50 MG TAB PO PRN (21:44)
[2022-09-25] VITALS (11 sets, daily range): BP systolic 109–140; BP diastolic 60–83; PULSE 56–67; RESP 20–23; TEMP 97.5–98.3; O2SAT 95–100
[2022-09-25] MEDS: ALBUTEROL/IPRATROPIUM 3 ML NEB NEB SCH ×7 (00:05→23:30)
[2022-09-25] MEDS: FAMOTIDINE 20 MG/2 ML VIAL IV SCH ×2 (03:34→18:04)
[2022-09-25 05:33] LABS: BASOPHILS % 0.3 % (0.0-1.0); EOSINOPHILS % 0.1 % (0.0-6.0); HEMATOCRIT 44.7 % (38.2-49.6); LYMPHOCYTES % 12.6 % (18.0-39.1); MEAN CORPUSCULAR HEMOGLOBIN 31.6 pg (28-32); MEAN CORPUSCULAR HGB CONC 33.6 g/dL (31-35); MONOCYTES # (AUTO) 1.4 (0.2-0.8); NEUTROPHILS # (AUTO) 5.6 (2.1-6.9); NEUTROPHILS % 69.7 % (38.7-80.0); PLATELET COUNT 93 x10e3/uL (140-360); RED BLOOD COUNT 4.74 x10e6/uL (4.3-5.7); RED CELL DISTRIBUTION WIDTH 14.1 % (11.7-14.4)
[2022-09-25 05:35] LABS: MEAN CORPUSCULAR VOLUME 94.3 fL (81-99)
[2022-09-25 05:46] LABS: ALBUMIN 2.6 g/dL (3.5-5.0); ALBUMIN/GLOBULIN RATIO 0.7 (0.8-2.0); ANION GAP 10.3 mmol/L (8-16); CALCIUM 8.8 mg/dL (8.4-10.2); CREATININE, SERUM 0.83 mg/dL (0.72-1.25); POTASSIUM 4.3 mmol/L (3.5-5.1)
[2022-09-25] MEDS: FUROSEMIDE INJ 10 MG/ML 2 ML VIAL IV SCH ×2 (09:17→18:04)
[2022-09-25] MEDS: TRAMADOL HCL 50 MG TAB PO PRN ×3 (09:18→23:16)
[2022-09-25] MEDS: METOPROLOL SUCCINATE 25 MG TAB XL PO SCH (12:15)
[2022-09-25] MEDS: OLMESARTAN 20 MG TAB PO SCH (12:15)
[2022-09-25] MEDS ORDERED: ONDANSETRON HCL 4 MG ORAL DISINTEGRATING TAB PO PRN (12:30)
[2022-09-25] MEDS ORDERED: ENOXAPARIN SOD INJ 40 MG/0.4 ML SYR SC SCH (17:00)
[2022-09-26] VITALS: BP 94/53; PULSE 56; RESP 22; TEMP 97.2; O2SAT 95
[2022-09-26] MEDS: ALBUTEROL/IPRATROPIUM 3 ML NEB NEB SCH ×3 (03:00→11:00)
[2022-09-26 04:00] VITALS: BP 121/68; PULSE 52; RESP 21; TEMP 97.9; O2SAT 100
[2022-09-26] MEDS: FAMOTIDINE 20 MG/2 ML VIAL IV SCH (05:12)
[2022-09-26 05:25] LABS: BASOPHILS # (AUTO) 0.1 (0.0-0.1); BASOPHILS % 0.9 % (0.0-1.0); EOSINOPHILS # (AUTO) 0.3 (0.0-0.4); EOSINOPHILS % 3.1 % (0.0-6.0); HEMATOCRIT 46.3 % (38.2-49.6); HEMOGLOBIN 15.2 g/dL (14.0-18.0); LYMPHOCYTES # (AUTO) 1.6 (1.0-3.2); LYMPHOCYTES % 20.3 % (18.0-39.1); MEAN CORPUSCULAR HEMOGLOBIN 31.8 pg (28-32); MEAN CORPUSCULAR HGB CONC 32.8 g/dL (31-35); MEAN CORPUSCULAR VOLUME 96.9 fL (81-99); MONOCYTES # (AUTO) 1.3 (0.2-0.8); MONOCYTES % 16.8 % (4.4-11.3); NEUTROPHILS # (AUTO) 4.7 (2.1-6.9); NEUTROPHILS % 58.6 % (38.7-80.0); PLATELET COUNT 111 x10e3/uL (140-360); RED BLOOD COUNT 4.78 x10e6/uL (4.3-5.7); RED CELL DISTRIBUTION WIDTH 14.2 % (11.7-14.4)
[2022-09-26 06:00] LABS: ANION GAP 10.9 mmol/L (8-16); CALCIUM 8.5 mg/dL (8.4-10.2); CREATININE, SERUM 0.86 mg/dL (0.72-1.25); POTASSIUM 3.9 mmol/L (3.5-5.1)
[2022-09-26 07:30] VITALS: PULSE 60; RESP 20; O2SAT 96
[2022-09-26 08:07] VITALS: BP 130/87; PULSE 62; RESP 18; TEMP 97.7; O2SAT 98
[2022-09-26] MEDS: FUROSEMIDE INJ 10 MG/ML 2 ML VIAL IV SCH (08:28)
[2022-09-26] MEDS: OLMESARTAN 20 MG TAB PO SCH (08:28)
[2022-09-26] MEDS: TRAMADOL HCL 50 MG TAB PO PRN (08:29)
[2022-09-26] MEDS: METOPROLOL SUCCINATE 25 MG TAB XL PO SCH (08:29)
[2022-09-26 08:59] VITALS: BP 136/75; PULSE 60; RESP 18; TEMP 97.7; O2SAT 98
[2022-09-26] MEDS ORDERED: LEVOFLOXACIN250 MG PO (10:10)
[2022-09-26] MEDS ORDERED: TRELEGY ELLIPT1 EACH INH (10:11)
[2022-09-26] MEDS ORDERED: FAMOTIDINE 20 MG TAB PO SCH (16:30)
[2022-09-26] MEDS ORDERED: AZITHROMYCIN 250 MG TAB PO SCH (21:00)
== END 2022-09-26 13:31 | disposition home or self-care (01) | DRG 291 ==
LOC: ER 13:39 → ERHOLD 16:33 → MED/SURG 17:29
PROVIDERS: ADMIT Internal Medicine; ATTEND Internal Medicine
DX: I11.0 Hypertensive heart disease with heart failure (principal); I50.33 Acute on chronic diastolic (congestive) heart failure; Z68.44 Body mass index [BMI] 60.0-69.9, adult; J44.0 Chronic obstructive pulmonary disease with (acute) lower respiratory infection; J20.9 Acute bronchitis, unspecified; G47.33 Obstructive sleep apnea (adult) (pediatric); E66.01 Morbid (severe) obesity due to excess calories; I27.20 Pulmonary hypertension, unspecified; K70.30 Alcoholic cirrhosis of liver without ascites; I87.2 Venous insufficiency (chronic) (peripheral); D69.6 Thrombocytopenia, unspecified; E88.09 Other disorders of plasma-protein metabolism, not elsewhere classified; I87.8 Other specified disorders of veins; Z20.822 Contact with and (suspected) exposure to COVID-19; Z86.19 Personal history of other infectious and parasitic diseases; Z87.891 Personal history of nicotine dependence; Z79.899 Other long term (current) drug therapy
CPT/HCPCS: 36415; 71045; 80048; 80053; 80061; 82550; 82948; 83605; 83735; 83880; 84484; 85025; 85610; 85730; 87040; 93005; 94640; 94799; 99285; J0696; J1100; J1650; J1940; J7050

== ENCOUNTER 2023-11-10 20:49 | Inpatient (IN) | payer OTHER ==
[~2023-11-10] VITALS: Ht 180.3 cm; Wt 195.0 kg
[~2023-11-10 20:49] MED LIST changes: +BACTRIM DS TAB1 EACH PO; +LEVOFLOXACIN250 MG PO
[2023-11-10 21:32] LABS: BASOPHILS # (AUTO) 0.1 (0.0-0.1); BASOPHILS % 0.8 % (0.0-1.0); EOSINOPHILS # (AUTO) 0.2 (0.0-0.4); EOSINOPHILS % 1.8 % (0.0-6.0); HEMATOCRIT 43.7 % (38.2-49.6); HEMOGLOBIN 14.9 g/dL (14.0-18.0); LYMPHOCYTES # (AUTO) 1.6 (1.0-3.2); MEAN CORPUSCULAR HEMOGLOBIN 32.7 pg (28-32); MEAN CORPUSCULAR HGB CONC 34.1 g/dL (31-35); MONOCYTES % 19.5 % (4.4-11.3); NEUTROPHILS # (AUTO) 6.3 (2.1-6.9); NEUTROPHILS % 61.2 % (38.7-80.0); PLATELET COUNT 113 x10e3/uL (140-360); RED BLOOD COUNT 4.55 x10e6/uL (4.3-5.7); RED CELL DISTRIBUTION WIDTH 13.9 % (11.7-14.4); WHITE BLOOD COUNT 10.26 x10e3/uL (4.8-10.8)
[2023-11-10] MEDS: ACETAMINOPHEN 325 MG TAB PO STA (21:46)
[2023-11-10 21:47] LABS: ALBUMIN 2.4 g/dL (3.5-5.0); ALBUMIN/GLOBULIN RATIO 0.5 (0.8-2.0); ANION GAP 11.5 mmol/L (8-16); BILIRUBIN,TOTAL 3.1 mg/dL (0.2-1.2); CALCIUM 8.8 mg/dL (8.4-10.2); POTASSIUM 3.5 mmol/L (3.5-5.1); TOTAL PROTEIN 7.3 g/dL (6.5-8.1)
[2023-11-10] MEDS: SODIUM CHLORIDE 0.9% 1000ML 1,000 ML IV STA (21:50)
[2023-11-10] MEDS: DILTIAZEM HCL 5 MG/ML 5 ML VIAL IV STA (21:50)
[2023-11-10] MEDS: DIGOXIN INJ 0.25 MG/ML 2 ML AMP IV STA (21:54)
[2023-11-10 21:57] LABS: TROPONIN I 0.014 ng/mL (0-0.300)
[2023-11-10] MEDS: METOPROLOL TARTRATE INJ 1 MG/ML VIAL IV STA (21:57)
[2023-11-10 22:01] VITALS: PULSE 99; RESP 21; O2SAT 99
[2023-11-10] MEDS: ONDANSETRON HCL INJ 2MG/ML 2ML 2 MG/ML VIAL IV PRN (22:05)
[2023-11-10] MEDS: Morphine 4mg INJECTION 4 MG/ML INJ IV PRN (22:06)
[2023-11-10 23:24] VITALS: TEMP 99
[2023-11-10 23:45] VITALS: PULSE 93; RESP 20
[2023-11-11] VITALS (9 sets, daily range): BP systolic 120–160; BP diastolic 75–92; PULSE 78–103; RESP 18–22; TEMP 97.4–98.3; O2SAT 92–98
[2023-11-11 05:52] LABS: ABG HCO3 23 mmol/L (22-26); ABG PCO2 48 mmHg (35-45); ABG PO2 95 mmHg (80-105); ABG TCO2 25
[2023-11-11 07:24] LABS: BASOPHILS # (AUTO) 0.1 (0.0-0.1); BASOPHILS % 0.7 % (0.0-1.0); EOSINOPHILS # (AUTO) 0.2 (0.0-0.4); EOSINOPHILS % 2.2 % (0.0-6.0); LYMPHOCYTES # (AUTO) 1.6 (1.0-3.2); LYMPHOCYTES % 19.4 % (18.0-39.1); MEAN CORPUSCULAR HEMOGLOBIN 32.3 pg (28-32); MEAN CORPUSCULAR HGB CONC 32.6 g/dL (31-35); MEAN CORPUSCULAR VOLUME 99.1 fL (81-99); MONOCYTES # (AUTO) 1.6 (0.2-0.8); MONOCYTES % 19.8 % (4.4-11.3); NEUTROPHILS # (AUTO) 4.7 (2.1-6.9); NEUTROPHILS % 57.4 % (38.7-80.0); PLATELET COUNT 111 x10e3/uL (140-360); RED BLOOD COUNT 4.64 x10e6/uL (4.3-5.7); RED CELL DISTRIBUTION WIDTH 14.3 % (11.7-14.4); WHITE BLOOD COUNT 8.14 x10e3/uL (4.8-10.8)
[2023-11-11 08:02] LABS: TROPONIN I 0.004 ng/mL (0-0.300)
[2023-11-11 08:20] LABS: ALBUMIN 2.3 g/dL (3.5-5.0); ALBUMIN/GLOBULIN RATIO 0.5 (0.8-2.0); ANION GAP 9.8 mmol/L (8-16); BILIRUBIN,TOTAL 2.6 mg/dL (0.2-1.2); CALCIUM 8.6 mg/dL (8.4-10.2); CREATININE, SERUM 0.92 mg/dL (0.72-1.25); POTASSIUM 3.8 mmol/L (3.5-5.1)
[2023-11-11] MEDS: APIXABAN 5 MG TABLET PO SCH (09:21)
[2023-11-11] MEDS: POTASSIUM CHLORIDE 20 MEQ TAB CR PO STA (09:21)
[2023-11-11] MEDS: METOPROLOL TARTRATE 25 MG TAB PO SCH ×2 (09:21→16:56)
[2023-11-11 10:11] LABS: EOSINOPHILS % (MANUAL) 1 % (0-7); HYPOCHROMASIA SLIGHT; LYMPHOCYTES % (MANUAL) 12 % (19-48); MONOCYTES % (MANUAL) 13 % (3.4-9.0); NEUTROPHILS % (MANUAL) 69 % (40-74); PLATELET ESTIMATE MODERATELY DECREASED; PLATELET MORPHOLOGY COMMENT NORMAL; RBC MORPHOLOGY COMMENT NORMAL; REACTIVE LYMPHOCYTES 5
[2023-11-11] MEDS ORDERED: ACETAMINOPHEN 325 MG TAB PO PRN (11:00)
[2023-11-11] MEDS ORDERED: BISACODYL 10 MG SUPP PR PRN (11:00)
[2023-11-11 15:18] LABS: TROPONIN I 0.006 ng/mL (0-0.300)
[2023-11-11] MEDS: BENZONATATE 100 MG CAP PO PRN (16:53)
[2023-11-11] MEDS: FUROSEMIDE 40 MG TAB PO SCH (17:43)
[2023-11-12] VITALS (9 sets, daily range): BP systolic 97–140; BP diastolic 63–96; PULSE 78–94; RESP 18–20; TEMP 97.6–98.6; O2SAT 92–98
[2023-11-12] MEDS: METOPROLOL TARTRATE 25 MG TAB PO SCH (01:00)
[2023-11-12 06:28] LABS: BASOPHILS # (AUTO) 0.1 (0.0-0.1); BASOPHILS % 0.9 % (0.0-1.0); EOSINOPHILS # (AUTO) 0.1 (0.0-0.4); EOSINOPHILS % 1.9 % (0.0-6.0); HEMATOCRIT 43.3 % (38.2-49.6); HEMOGLOBIN 13.8 g/dL (14.0-18.0); LYMPHOCYTES # (AUTO) 1.5 (1.0-3.2); LYMPHOCYTES % 21.4 % (18.0-39.1); MEAN CORPUSCULAR HEMOGLOBIN 32.2 pg (28-32); MEAN CORPUSCULAR HGB CONC 31.9 g/dL (31-35); MEAN CORPUSCULAR VOLUME 101.2 fL (81-99); MONOCYTES # (AUTO) 1.5 (0.2-0.8); MONOCYTES % 21.4 % (4.4-11.3); NEUTROPHILS # (AUTO) 3.7 (2.1-6.9); NEUTROPHILS % 53.7 % (38.7-80.0); PLATELET COUNT 90 x10e3/uL (140-360); RED BLOOD COUNT 4.28 x10e6/uL (4.3-5.7); RED CELL DISTRIBUTION WIDTH 14.4 % (11.7-14.4); WHITE BLOOD COUNT 6.93 x10e3/uL (4.8-10.8)
[2023-11-12 06:53] LABS: ALBUMIN 2.3 g/dL (3.5-5.0); ALBUMIN/GLOBULIN RATIO 0.5 (0.8-2.0); ANION GAP 9.7 mmol/L (8-16); CALCIUM 8.9 mg/dL (8.4-10.2); CREATININE, SERUM 1.07 mg/dL (0.72-1.25); MAGNESIUM 1.8 MG/DL (1.3-2.1); POTASSIUM 4.7 mmol/L (3.5-5.1); TOTAL PROTEIN 6.9 g/dL (6.5-8.1)
[2023-11-12] MEDS: DOCUSATE SODIUM 100 MG CAP PO SCH (08:57)
[2023-11-12] MEDS: SENNOSIDES 8.6 MG TAB PO SCH (08:58)
[2023-11-12 09:46] LABS: EOSINOPHILS % (MANUAL) 1 % (0-7); LYMPHOCYTES % (MANUAL) 12 % (19-48); MONOCYTES % (MANUAL) 14 % (3.4-9.0); NEUTROPHILS % (MANUAL) 73 % (40-74)
[2023-11-12 09:47] LABS: HYPOCHROMASIA SLIGHT; PLATELET ESTIMATE MODERATELY DECREASED; PLATELET MORPHOLOGY COMMENT NORMAL; RBC MORPHOLOGY COMMENT ABNORMAL
[2023-11-13] VITALS (9 sets, daily range): BP systolic 96–122; BP diastolic 60–79; PULSE 60–98; RESP 18–20; TEMP 97.7–98.7; O2SAT 93–98
[2023-11-13 05:40] LABS: BASOPHILS # (AUTO) 0.1 (0.0-0.1); BASOPHILS % 0.8 % (0.0-1.0); EOSINOPHILS # (AUTO) 0.2 (0.0-0.4); HEMOGLOBIN 13.8 g/dL (14.0-18.0); LYMPHOCYTES # (AUTO) 1.2 (1.0-3.2); MEAN CORPUSCULAR HEMOGLOBIN 32.5 pg (28-32); MEAN CORPUSCULAR HGB CONC 32.1 g/dL (31-35); MEAN CORPUSCULAR VOLUME 101.2 fL (81-99); MONOCYTES # (AUTO) 1.3 (0.2-0.8); MONOCYTES % 20.4 % (4.4-11.3); NEUTROPHILS # (AUTO) 3.5 (2.1-6.9); PLATELET COUNT 109 x10e3/uL (140-360); RED BLOOD COUNT 4.25 x10e6/uL (4.3-5.7); WHITE BLOOD COUNT 6.27 x10e3/uL (4.8-10.8)
[2023-11-13 06:06] LABS: ANION GAP 9.1 mmol/L (8-16); CALCIUM 8.9 mg/dL (8.4-10.2); CREATININE, SERUM 1.07 mg/dL (0.72-1.25); POTASSIUM 4.1 mmol/L (3.5-5.1)
[2023-11-13] MEDS: DRONEDARONE 400 MG TAB PO SCH (11:13)
[2023-11-13] MEDS: MAGNESIUM SULFATE 2GM/50ML 50 ML IV ONE (11:14)
[2023-11-13 11:33] LABS: BASOPHILS % (MANUAL) 2 % (0-1.5); EOSINOPHILS % (MANUAL) 2 % (0-7); LYMPHOCYTES % (MANUAL) 11 % (19-48); MONOCYTES % (MANUAL) 19 % (3.4-9.0); NEUTROPHILS % (MANUAL) 66 % (40-74)
[2023-11-13 11:38] LABS: PLATELET ESTIMATE ADEQUATE; PLATELET MORPHOLOGY COMMENT NORMAL; RBC MORPHOLOGY COMMENT NORMAL
[2023-11-14] VITALS (7 sets, daily range): BP systolic 122–133; BP diastolic 72–85; PULSE 63–95; RESP 18–22; TEMP 97.6–98; O2SAT 93–99
[2023-11-14 05:22] LABS: BASOPHILS # (AUTO) 0.1 (0.0-0.1); BASOPHILS % 0.7 % (0.0-1.0); EOSINOPHILS # (AUTO) 0.2 (0.0-0.4); EOSINOPHILS % 2.9 % (0.0-6.0); HEMATOCRIT 41.6 % (38.2-49.6); HEMOGLOBIN 13.4 g/dL (14.0-18.0); LYMPHOCYTES # (AUTO) 1.3 (1.0-3.2); LYMPHOCYTES % 16.1 % (18.0-39.1); MEAN CORPUSCULAR HEMOGLOBIN 32.7 pg (28-32); MEAN CORPUSCULAR HGB CONC 32.2 g/dL (31-35); MEAN CORPUSCULAR VOLUME 101.5 fL (81-99); MONOCYTES # (AUTO) 1.7 (0.2-0.8); MONOCYTES % 20.6 % (4.4-11.3); NEUTROPHILS # (AUTO) 4.8 (2.1-6.9); NEUTROPHILS % 58.8 % (38.7-80.0); PLATELET COUNT 114 x10e3/uL (140-360); RED CELL DISTRIBUTION WIDTH 14.4 % (11.7-14.4); WHITE BLOOD COUNT 8.07 x10e3/uL (4.8-10.8)
[2023-11-14 05:56] LABS: ANION GAP 8.4 mmol/L (8-16); CREATININE, SERUM 1.16 mg/dL (0.72-1.25)
[2023-11-14 05:57] LABS: POTASSIUM 3.4 mmol/L (3.5-5.1)
[2023-11-14 09:38] LABS: BASOPHILS % (MANUAL) 2 % (0-1.5); LYMPHOCYTES % (MANUAL) 16 % (19-48); METAMYELOCYTES % (MANUAL) 1 % (0-0); MONOCYTES % (MANUAL) 19 % (3.4-9.0); NEUTROPHILS % (MANUAL) 61 % (40-74); REACTIVE LYMPHOCYTES 1
[2023-11-14 09:39] LABS: PLATELET ESTIMATE SLIGHTLY DECREASED; PLATELET MORPHOLOGY COMMENT NORMAL
[2023-11-14 09:40] LABS: RBC MORPHOLOGY COMMENT NORMAL; TOXIC GRANULATION SLIGHT
[2023-11-14] MEDS: SODIUM CHLORIDE 0.9% 250ML 250 ML ONE (09:40)
[2023-11-14] MEDS ORDERED: LOPRESSOR25 MG PO (13:50)
[2023-11-14] MEDS ORDERED: BUMETANIDE1 MG PO (13:50)
[2023-11-14] MEDS ORDERED: DOXYCYCLINE HY100 MG PO (13:50)
[2023-11-14] MEDS ORDERED: MULTAQ 400MG T400 MG PO (13:50)
[2023-11-14] MEDS ORDERED: ELIQUIS5 MG PO (13:50)
[2023-11-14] MEDS ORDERED: BENZONATATE100 MG PO (13:50)
[2023-11-14] MEDS ORDERED: POTASSIUM CHLO20 ME1 PO (13:50)
[2023-11-14] MEDS: POTASSIUM CHLORIDE 10MEQ EA PO ONE (14:21)
[2023-11-14] MEDS: KETOROLAC TROMETHAMINE 10 MG TAB PO PRN (14:21)
[2023-11-14] MEDS ORDERED: KETOROLAC TROME10 MG PO (16:14)
[2023-11-14] MEDS ORDERED: BUMETANIDE 1 MG TAB PO SCH (17:00)
== END 2023-11-14 17:22 | disposition home or self-care (01) | DRG 602 ==
LOC: ER 20:53 → ERHOLD 21:25 → OBSVTOIN 22:00 → MED/SURG3 11-11 00:03
PROVIDERS: ADMIT Internal Medicine; ATTEND Internal Medicine
DX: L03.115 Cellulitis of right lower limb (principal); I50.33 Acute on chronic diastolic (congestive) heart failure; J96.21 Acute and chronic respiratory failure with hypoxia; E66.2 Morbid (severe) obesity with alveolar hypoventilation; Z68.43 Body mass index [BMI] 50.0-59.9, adult; I48.91 Unspecified atrial fibrillation; I11.0 Hypertensive heart disease with heart failure; K70.30 Alcoholic cirrhosis of liver without ascites; Z99.81 Dependence on supplemental oxygen; E11.9 Type 2 diabetes mellitus without complications; J44.9 Chronic obstructive pulmonary disease, unspecified; I87.8 Other specified disorders of veins; K21.9 Gastro-esophageal reflux disease without esophagitis; E78.5 Hyperlipidemia, unspecified; M54.9 Dorsalgia, unspecified; R53.81 Other malaise; Z79.01 Long term (current) use of anticoagulants; Z79.51 Long term (current) use of inhaled steroids; Z88.8 Allergy status to other drugs, medicaments and biological substances
CPT/HCPCS: 36415; 36600; 71045; 80048; 80053; 82550; 82805; 82948; 83036; 83605; 83735; 83880; 84443; 84484; 85025; 87040; 93005; 93306; 93971; 94799; 99252; 99284; J1160; J2270; J2405; J2543; J3475; J7030; J7050

== ENCOUNTER 2024-03-26 10:18 | Inpatient (IN) | payer OTHER ==
[~2024-03-26] VITALS: Ht 180.3 cm; Wt 195.0 kg
[~2024-03-26 10:18] MED LIST changes: +BENZONATATE100 MG PO; +BUMETANIDE1 MG PO; +DOXYCYCLINE HY100 MG PO; +ELIQUIS5 MG PO; +KETOROLAC TROME10 MG PO; +LOPRESSOR25 MG PO; +MULTAQ 400MG T400 MG PO; +POTASSIUM CHLO20 ME1 PO
[2024-03-26 10:54] VITALS: TEMP 98.9
[2024-03-26 10:56] LABS: BASOPHILS # (AUTO) 0.1 (0.0-0.1); BASOPHILS % 0.9 % (0.0-1.0); EOSINOPHILS # (AUTO) 0.3 (0.0-0.4); EOSINOPHILS % 2.9 % (0.0-6.0); HEMATOCRIT 49.5 % (38.2-49.6); HEMOGLOBIN 15.6 g/dL (14.0-18.0); LYMPHOCYTES # (AUTO) 1.1 (1.0-3.2); LYMPHOCYTES % 9.6 % (18.0-39.1); MEAN CORPUSCULAR HEMOGLOBIN 31.5 pg (28-32); MEAN CORPUSCULAR HGB CONC 31.5 g/dL (31-35); MONOCYTES # (AUTO) 1.3 (0.2-0.8); MONOCYTES % 10.9 % (4.4-11.3); NEUTROPHILS # (AUTO) 8.4 (2.1-6.9); NEUTROPHILS % 72.9 % (38.7-80.0); PLATELET COUNT 171 x10e3/uL (140-360); RED BLOOD COUNT 4.95 x10e6/uL (4.3-5.7); RED CELL DISTRIBUTION WIDTH 14.8 % (11.7-14.4); WHITE BLOOD COUNT 11.56 x10e3/uL (4.8-10.8)
[2024-03-26 11:12] LABS: ALBUMIN 1.9 g/dL (3.5-5.0); ALBUMIN/GLOBULIN RATIO 0.3 (0.8-2.0); ANION GAP 12.2 mmol/L (8-16); BILIRUBIN,TOTAL 2.4 mg/dL (0.2-1.2); CREATININE, SERUM 1.42 mg/dL (0.72-1.25); POTASSIUM 4.2 mmol/L (3.5-5.1); TOTAL PROTEIN 7.5 g/dL (6.5-8.1)
[2024-03-26 11:19] LABS: TROPONIN I 0.014 ng/mL (0-0.300)
[2024-03-26] MEDS: DILTIAZEM HCL 5 MG/ML 5 ML VIAL IV ONE (11:59)
[2024-03-26] MEDS ORDERED: LEVALBUTEROL HCL SOLN NEBU 1.25 MG/3 ML NEB INH PRN (12:45)
[2024-03-26] MEDS ORDERED: BISACODYL 10 MG SUPP PR PRN (12:45)
[2024-03-26] MEDS ORDERED: ACETAMINOPHEN 325 MG TAB PO PRN (12:45)
[2024-03-26] MEDS ORDERED: LABETALOL HCL 5 MG/ML 20ML VIAL IV PRN (12:45)
[2024-03-26] MEDS ORDERED: ONDANSETRON HCL INJ 2MG/ML 2ML 2 MG/ML VIAL IV PRN (12:45)
[2024-03-26 12:56] VITALS: PULSE 74; O2SAT 97
[2024-03-26] MEDS: HYDROCODONE/APAP 5MG-325MG TAB PO PRN (13:10)
[2024-03-26] MEDS: FUROSEMIDE INJ 10 MG/ML 4 ML VIAL IV SCH (13:11)
[2024-03-26] MEDS: METOPROLOL SUCCINATE 50 MG TAB XL PO SCH (13:11)
[2024-03-26] MEDS ORDERED: HEPARIN SOD (PORCINE) 5,000 UNIT/ML VIAL SC SCH (14:00)
[2024-03-26 15:23] VITALS: PULSE 75; RESP 21
[2024-03-26 16:00] VITALS: BP 139/89; PULSE 84; RESP 20; TEMP 98; O2SAT 99
[2024-03-26] MEDS ORDERED: ENOXAPARIN SOD INJ 40 MG/0.4 ML SYR SC SCH (17:00)
[2024-03-26] MEDS: APIXABAN 5 MG TABLET PO SCH (17:00)
[2024-03-26] MEDS: PANTOPRAZOLE SOD 40 MG TABEC PO SCH (17:00)
[2024-03-26] MEDS ORDERED: LORAZEPAM 1 MG TAB PO PRN (17:45)
[2024-03-26] MEDS: PREDNISONE 20 MG TAB PO SCH (18:19)
[2024-03-26] MEDS: AZITHROMYCIN 250 MG TAB PO SCH (18:19)
[2024-03-26] MEDS: SODIUM CHLORIDE 0.9% 250ML 250 ML ONE (18:21)
[2024-03-26] MEDS: FLUTICASONE IH SCH (19:00)
[2024-03-26] MEDS: SALMETEROL IH SCH (19:00)
[2024-03-26 19:07] LABS: INFLUENZA A AG NEGATIVE (NEGATIVE); INFLUENZA B AG NEGATIVE (NEGATIVE)
[2024-03-26 19:08] LABS: CORONAVIRUS COVID-19 AG NEGATIVE (NEGATIVE)
[2024-03-26 20:00] VITALS: BP 147/101; PULSE 90; RESP 20; TEMP 97.7; O2SAT 93
[2024-03-26 20:15] VITALS: PULSE 77; RESP 18; O2SAT 91
[2024-03-27] VITALS (7 sets, daily range): BP systolic 115–147; BP diastolic 69–101; PULSE 72–88; RESP 18–20; TEMP 97.6–97.8; O2SAT 91–99
[2024-03-27 05:31] LABS: BASOPHILS % 0.3 % (0.0-1.0); EOSINOPHILS % 0.3 % (0.0-6.0); HEMATOCRIT 41.6 % (38.2-49.6); HEMOGLOBIN 13.9 g/dL (14.0-18.0); LYMPHOCYTES % 9.1 % (18.0-39.1); MEAN CORPUSCULAR HEMOGLOBIN 31.7 pg (28-32); MEAN CORPUSCULAR HGB CONC 33.4 g/dL (31-35); MEAN CORPUSCULAR VOLUME 94.8 fL (81-99); MONOCYTES # (AUTO) 0.7 (0.2-0.8); MONOCYTES % 6.3 % (4.4-11.3); NEUTROPHILS # (AUTO) 8.8 (2.1-6.9); NEUTROPHILS % 82.8 % (38.7-80.0); PLATELET COUNT 180 x10e3/uL (140-360); RED BLOOD COUNT 4.39 x10e6/uL (4.3-5.7); RED CELL DISTRIBUTION WIDTH 14.9 % (11.7-14.4); WHITE BLOOD COUNT 10.59 x10e3/uL (4.8-10.8)
[2024-03-27 06:01] LABS: ANION GAP 11.1 mmol/L (8-16); CREATININE, SERUM 1.28 mg/dL (0.72-1.25); POTASSIUM 4.1 mmol/L (3.5-5.1)
[2024-03-27] MEDS: DOCUSATE SODIUM 100 MG CAP PO SCH (09:00)
[2024-03-27] MEDS: SENNOSIDES 8.6 MG TAB PO SCH (09:00)
[2024-03-27] MEDS: FUROSEMIDE INJ 10 MG/ML 4 ML VIAL IV SCH (11:12)
[2024-03-27] MEDS: MAGNESIUM SULFATE 2GM/50ML 50 ML IV ONE (11:12)
[2024-03-27] MEDS: Morphine 4mg INJECTION 4 MG/ML INJ IV PRN (11:25)
[2024-03-27] MEDS ORDERED: TOPROL XL50 MG PO (12:26)
[2024-03-27] MEDS ORDERED: ELIQUIS5 MG PO (12:26)
[2024-03-27] MEDS ORDERED: PREDNISONE50 MG PO (12:26)
[2024-03-27] MEDS ORDERED: BUMETANIDE1 MG PO (12:26)
[2024-03-27] MEDS ORDERED: FLOMAX0.4 MG PO (12:26)
== END 2024-03-27 14:00 | disposition home or self-care (01) | DRG 291 ==
LOC: ER 10:22 → ERHOLD 11:50 → MED/SURG2 15:55
PROVIDERS: ADMIT Internal Medicine; ATTEND Internal Medicine
DX: I11.0 Hypertensive heart disease with heart failure (principal); I50.33 Acute on chronic diastolic (congestive) heart failure; J96.21 Acute and chronic respiratory failure with hypoxia; J44.1 Chronic obstructive pulmonary disease with (acute) exacerbation; N17.9 Acute kidney failure, unspecified; Z59.01 Sheltered homelessness; Z68.44 Body mass index [BMI] 60.0-69.9, adult; E66.01 Morbid (severe) obesity due to excess calories; Z99.81 Dependence on supplemental oxygen; K70.30 Alcoholic cirrhosis of liver without ascites; I48.91 Unspecified atrial fibrillation; E78.5 Hyperlipidemia, unspecified; K21.9 Gastro-esophageal reflux disease without esophagitis; R73.9 Hyperglycemia, unspecified; R73.03 Prediabetes; N40.0 Benign prostatic hyperplasia without lower urinary tract symptoms; M54.9 Dorsalgia, unspecified; B19.20 Unspecified viral hepatitis C without hepatic coma; Z11.52 Encounter for screening for COVID-19; T50.1X6A Underdosing of loop [high-ceiling] diuretics, initial encounter; Z91.148 Patient's other noncompliance with medication regimen for other reason; Z79.51 Long term (current) use of inhaled steroids; Z88.8 Allergy status to other drugs, medicaments and biological substances; Z79.01 Long term (current) use of anticoagulants
CPT/HCPCS: 36415; 71045; 80048; 80053; 83036; 83735; 83880; 84443; 84484; 85025; 93005; 93306; 94799; 99285; J0696; J1940; J2270; J3475; J7050; J7512

== ENCOUNTER 2024-06-13 23:12 | Inpatient (IN) | payer OTHER ==
[~2024-06-13] VITALS: Ht 180.3 cm; Wt 189.1 kg
[~2024-06-13 23:12] MED LIST changes: +FLOMAX0.4 MG PO; +PREDNISONE50 MG PO; +TOPROL XL50 MG PO
[2024-06-13 23:28] LABS: BASOPHILS # (AUTO) 0.1 (0.0-0.1); BASOPHILS % 1.4 % (0.0-1.0); EOSINOPHILS # (AUTO) 0.2 (0.0-0.4); EOSINOPHILS % 2.3 % (0.0-6.0); HEMATOCRIT 43.7 % (38.2-49.6); HEMOGLOBIN 14.4 g/dL (14.0-18.0); LYMPHOCYTES # (AUTO) 1.5 (1.0-3.2); LYMPHOCYTES % 21.6 % (18.0-39.1); MEAN CORPUSCULAR HEMOGLOBIN 31.4 pg (28-32); MEAN CORPUSCULAR VOLUME 95.2 fL (81-99); MONOCYTES % 13.9 % (4.4-11.3); NEUTROPHILS # (AUTO) 4.2 (2.1-6.9); NEUTROPHILS % 60.5 % (38.7-80.0); PLATELET COUNT 187 x10e3/uL (140-360); RED BLOOD COUNT 4.59 x10e6/uL (4.3-5.7); RED CELL DISTRIBUTION WIDTH 13.9 % (11.7-14.4); WHITE BLOOD COUNT 6.99 x10e3/uL (4.8-10.8)
[2024-06-13 23:33] VITALS: TEMP 98.7
[2024-06-13 23:49] LABS: ALBUMIN 1.9 g/dL (3.5-5.0); ALBUMIN/GLOBULIN RATIO 0.4 (0.8-2.0); ANION GAP 10.6 mmol/L (8-16); BILIRUBIN,TOTAL 2.8 mg/dL (0.2-1.2); CALCIUM 8.1 mg/dL (8.4-10.2); CORONAVIRUS COVID-19 AG NEGATIVE (NEGATIVE); CREATININE, SERUM 1.36 mg/dL (0.72-1.25); INFLUENZA A AG NEGATIVE (NEGATIVE); INFLUENZA B AG NEGATIVE (NEGATIVE); TOTAL PROTEIN 7.2 g/dL (6.5-8.1)
[2024-06-13 23:55] LABS: TROPONIN I 0.033 ng/mL (0-0.300)
[2024-06-14] VITALS (19 sets, daily range): BP systolic 96–142; BP diastolic 55–92; PULSE 61–108; RESP 15–29; TEMP 97.3–98.4; O2SAT 85–99
[2024-06-14 00:04] LABS: POTASSIUM 2.6 mmol/L (3.5-5.1)
[2024-06-14] MEDS: SODIUM CHLORIDE 0.9% 1000ML 1,000 ML IV STA (00:37)
[2024-06-14] MEDS: ACETAMINOPHEN 325 MG TAB PO STA (00:38)
[2024-06-14] MEDS: POTASSIUM CHLORIDE 20 MEQ TAB CR PO STA ×2 (03:01→10:00)
[2024-06-14] MEDS: POTASSIUM CHLORIDE 20MEQ/100ML 100 ML IV STA (03:03)
[2024-06-14 08:26] LABS: TROPONIN I 0.033 ng/mL (0-0.300)
[2024-06-14 08:38] LABS: ANION GAP 11.8 mmol/L (8-16); CALCIUM 7.5 mg/dL (8.4-10.2); CREATININE, SERUM 1.17 mg/dL (0.72-1.25)
[2024-06-14] MEDS: SODIUM CHLORIDE 0.9% 1000ML 1,000 ML IV ONE (08:47)
[2024-06-14] MEDS: TAMSULOSIN HCL 0.4 MG CAP PO SCH (08:48)
[2024-06-14] MEDS: APIXABAN 5 MG TABLET PO SCH (08:48)
[2024-06-14] MEDS: PANTOPRAZOLE SOD 40 MG TABEC PO SCH (08:48)
[2024-06-14 08:57] LABS: POTASSIUM 2.8 mmol/L (3.5-5.1)
[2024-06-14] MEDS ORDERED: IOPAMIDOL 370 MG/ML 100 ML INFUS..BTL INJ ONE (09:51)
[2024-06-14 18:29] LABS: INR 1.67; PROTHROMBIN TIME 20.6 seconds (11.9-14.5)
[2024-06-14 18:30] LABS: PARTIAL THROMBOPLASTIN TIME 37.7 seconds (23.8-35.5)
[2024-06-14 18:45] LABS: TROPONIN I 0.026 ng/mL (0-0.300)
[2024-06-14] MEDS: BUDESONIDE/FORMOTEROL 160/4.5MCG INHALER INH SCH (19:27)
[2024-06-14] MEDS: ALBUTEROL 90 MCG/ACT INHALER INH PRN (19:28)
[2024-06-14] MEDS: Morphine 4mg INJECTION 4 MG/ML INJ IV ONE (20:53)
[2024-06-15] VITALS (12 sets, daily range): BP systolic 116–138; BP diastolic 72–112; PULSE 86–114; RESP 18–22; TEMP 97–97.9; O2SAT 91–100
[2024-06-15] MEDS: SPIRONOLACTONE 25 MG TAB PO STA (01:41)
[2024-06-15] MEDS: FUROSEMIDE 40 MG TAB PO STA (01:41)
[2024-06-15] MEDS: HYDROCODONE/APAP 7.5MG-325MG 1 EA TAB PO PRN (04:11)
[2024-06-15] MEDS: FUROSEMIDE 40 MG TAB PO SCH (05:27)
[2024-06-15 07:08] LABS: BASOPHILS # (AUTO) 0.1 (0.0-0.1); BASOPHILS % 1.8 % (0.0-1.0); EOSINOPHILS # (AUTO) 0.3 (0.0-0.4); EOSINOPHILS % 3.6 % (0.0-6.0); HEMATOCRIT 39.1 % (38.2-49.6); HEMOGLOBIN 12.6 g/dL (14.0-18.0); LYMPHOCYTES # (AUTO) 1.6 (1.0-3.2); MEAN CORPUSCULAR HEMOGLOBIN 31.2 pg (28-32); MEAN CORPUSCULAR HGB CONC 32.2 g/dL (31-35); MEAN CORPUSCULAR VOLUME 96.8 fL (81-99); MONOCYTES # (AUTO) 1.3 (0.2-0.8); MONOCYTES % 17.9 % (4.4-11.3); NEUTROPHILS # (AUTO) 3.9 (2.1-6.9); NEUTROPHILS % 54.3 % (38.7-80.0); PLATELET COUNT 163 x10e3/uL (140-360); RED BLOOD COUNT 4.04 x10e6/uL (4.3-5.7); RED CELL DISTRIBUTION WIDTH 13.4 % (11.7-14.4); WHITE BLOOD COUNT 7.26 x10e3/uL (4.8-10.8)
[2024-06-15 07:35] LABS: INR 1.42; PROTHROMBIN TIME 18.1 seconds (11.9-14.5)
[2024-06-15] MEDS: SPIRONOLACTONE 25 MG TAB PO SCH (09:40)
[2024-06-15] MEDS: POLYETHYLENE GLYCOL 3350 17 GM PACK PO SCH (09:40)
[2024-06-15 16:30] LABS: ALBUMIN 1.7 g/dL (3.5-5.0); ALBUMIN/GLOBULIN RATIO 0.4 (0.8-2.0); ANION GAP 12.7 mmol/L (8-16); BILIRUBIN,TOTAL 1.9 mg/dL (0.2-1.2); CALCIUM 7.3 mg/dL (8.4-10.2); CREATININE, SERUM 1.36 mg/dL (0.72-1.25)
[2024-06-15 16:38] LABS: POTASSIUM 2.7 mmol/L (3.5-5.1)
[2024-06-15 16:55] LABS: CHOL/HDL RATIO 6.8 (3.9-4.7); MAGNESIUM 1.5 MG/DL (1.3-2.1); PHOSPHORUS 2.5 MG/DL (2.3-4.7)
[2024-06-15 17:08] LABS: TROPONIN I 0.023 ng/mL (0-0.300)
[2024-06-15] MEDS: MAGNESIUM SULF 1GRAM/DEXTROSE 100 ML IV ONE (18:07)
[2024-06-15] MEDS: MAGNESIUM SULFATE 2GM/50ML 50 ML IV ONE (19:56)
[2024-06-15] MEDS: POTASSIUM CHLORIDE 10MEQ EA PO SCH (22:01)
[2024-06-16] VITALS (11 sets, daily range): BP systolic 114–130; BP diastolic 68–75; PULSE 80–108; RESP 19–20; TEMP 97.2–98.2; O2SAT 93–100
[2024-06-16] MEDS: POTASSIUM CHLORIDE 20 MEQ TAB CR PO SCH (11:50)
[2024-06-16] MEDS: METOPROLOL SUCCINATE 50 MG TAB XL PO SCH (11:51)
[2024-06-16 11:55] LABS: BASOPHILS # (AUTO) 0.1 (0.0-0.1); EOSINOPHILS # (AUTO) 0.2 (0.0-0.4); EOSINOPHILS % 3.5 % (0.0-6.0); HEMATOCRIT 36.3 % (38.2-49.6); LYMPHOCYTES # (AUTO) 1.2 (1.0-3.2); LYMPHOCYTES % 17.4 % (18.0-39.1); MEAN CORPUSCULAR HEMOGLOBIN 31.4 pg (28-32); MEAN CORPUSCULAR HGB CONC 33.1 g/dL (31-35); MONOCYTES # (AUTO) 1.1 (0.2-0.8); MONOCYTES % 15.9 % (4.4-11.3); NEUTROPHILS # (AUTO) 4.2 (2.1-6.9); NEUTROPHILS % 61.9 % (38.7-80.0); PLATELET COUNT 148 x10e3/uL (140-360); RED BLOOD COUNT 3.82 x10e6/uL (4.3-5.7); RED CELL DISTRIBUTION WIDTH 13.7 % (11.7-14.4)
[2024-06-16 12:19] LABS: ALBUMIN 1.7 g/dL (3.5-5.0); ALBUMIN/GLOBULIN RATIO 0.4 (0.8-2.0); BILIRUBIN,TOTAL 1.8 mg/dL (0.2-1.2); CALCIUM 7.3 mg/dL (8.4-10.2); CREATININE, SERUM 1.15 mg/dL (0.72-1.25); TOTAL PROTEIN 6.3 g/dL (6.5-8.1)
[2024-06-16 12:25] LABS: TROPONIN I 0.019 ng/mL (0-0.300)
[2024-06-16] MEDS: SPIRONOLACTONE 25 MG TAB PO SCH (17:59)
[2024-06-16] MEDS: POLYETHYLENE GLYCOL 3350 17 GM PACK PO SCH (21:00)
[2024-06-17] VITALS (7 sets, daily range): BP systolic 84–118; BP diastolic 53–91; PULSE 73–88; RESP 18–24; TEMP 97.1–98.3; O2SAT 95–99
[2024-06-17 07:01] LABS: BASOPHILS # (AUTO) 0.1 (0.0-0.1); BASOPHILS % 1.4 % (0.0-1.0); EOSINOPHILS # (AUTO) 0.3 (0.0-0.4); EOSINOPHILS % 4.6 % (0.0-6.0); HEMATOCRIT 33.7 % (38.2-49.6); HEMOGLOBIN 11.1 g/dL (14.0-18.0); LYMPHOCYTES # (AUTO) 1.3 (1.0-3.2); MEAN CORPUSCULAR HEMOGLOBIN 31.3 pg (28-32); MEAN CORPUSCULAR HGB CONC 32.9 g/dL (31-35); MEAN CORPUSCULAR VOLUME 94.9 fL (81-99); MONOCYTES % 16.7 % (4.4-11.3); NEUTROPHILS # (AUTO) 3.2 (2.1-6.9); PLATELET COUNT 119 x10e3/uL (140-360); RED BLOOD COUNT 3.55 x10e6/uL (4.3-5.7); RED CELL DISTRIBUTION WIDTH 13.5 % (11.7-14.4); WHITE BLOOD COUNT 5.82 x10e3/uL (4.8-10.8)
[2024-06-17 07:35] LABS: ANION GAP 9.3 mmol/L (8-16); CALCIUM 7.2 mg/dL (8.4-10.2); CREATININE, SERUM 1.06 mg/dL (0.72-1.25)
[2024-06-17 07:42] LABS: POTASSIUM 3.3 mmol/L (3.5-5.1)
[2024-06-17] MEDS: POTASSIUM CHLORIDE 20 MEQ TAB CR PO SCH (10:25)
[2024-06-18] VITALS (8 sets, daily range): BP systolic 95–114; BP diastolic 58–71; PULSE 78–82; RESP 16–20; TEMP 96.9–98.1; O2SAT 93–100
[2024-06-18 06:30] LABS: BASOPHILS # (AUTO) 0.1 (0.0-0.1); BASOPHILS % 1.5 % (0.0-1.0); EOSINOPHILS # (AUTO) 0.3 (0.0-0.4); EOSINOPHILS % 4.9 % (0.0-6.0); HEMATOCRIT 32.9 % (38.2-49.6); HEMOGLOBIN 10.7 g/dL (14.0-18.0); LYMPHOCYTES # (AUTO) 1.3 (1.0-3.2); LYMPHOCYTES % 24.1 % (18.0-39.1); MEAN CORPUSCULAR HEMOGLOBIN 31.4 pg (28-32); MEAN CORPUSCULAR HGB CONC 32.5 g/dL (31-35); MEAN CORPUSCULAR VOLUME 96.5 fL (81-99); MONOCYTES # (AUTO) 0.9 (0.2-0.8); MONOCYTES % 17.9 % (4.4-11.3); NEUTROPHILS # (AUTO) 2.7 (2.1-6.9); NEUTROPHILS % 51.4 % (38.7-80.0); PLATELET COUNT 120 x10e3/uL (140-360); RED BLOOD COUNT 3.41 x10e6/uL (4.3-5.7); RED CELL DISTRIBUTION WIDTH 13.6 % (11.7-14.4); WHITE BLOOD COUNT 5.26 x10e3/uL (4.8-10.8)
[2024-06-18 07:03] LABS: ALBUMIN 1.5 g/dL (3.5-5.0); ALBUMIN/GLOBULIN RATIO 0.4 (0.8-2.0); ANION GAP 10.2 mmol/L (8-16); BILIRUBIN,TOTAL 1.5 mg/dL (0.2-1.2); CALCIUM 7.3 mg/dL (8.4-10.2); CREATININE, SERUM 1.07 mg/dL (0.72-1.25); TOTAL PROTEIN 5.5 g/dL (6.5-8.1)
[2024-06-18 07:06] LABS: POTASSIUM 3.2 mmol/L (3.5-5.1)
[2024-06-18 07:25] LABS: THYROID STIMULATING HORMONE 8.789 uIU/mL (0.350-4.940)
[2024-06-18] MEDS: Morphine 2mg Syringe 2 MG/ML SYR IV PRN (11:18)
[2024-06-18] MEDS: SODIUM CHLORIDE 0.9% 100 ML ONE (23:22)
[2024-06-19] VITALS (11 sets, daily range): BP systolic 100–121; BP diastolic 58–82; PULSE 67–97; RESP 16–20; TEMP 97.3–98.9; O2SAT 90–100
[2024-06-19 07:25] LABS: ALBUMIN 1.6 g/dL (3.5-5.0); ALBUMIN/GLOBULIN RATIO 0.4 (0.8-2.0); ANION GAP 8.4 mmol/L (8-16); BILIRUBIN,TOTAL 1.4 mg/dL (0.2-1.2); CALCIUM 7.5 mg/dL (8.4-10.2); CREATININE, SERUM 1.14 mg/dL (0.72-1.25); MAGNESIUM 1.8 MG/DL (1.3-2.1); PHOSPHORUS 2.9 MG/DL (2.3-4.7); TOTAL PROTEIN 5.5 g/dL (6.5-8.1)
[2024-06-19 07:39] LABS: POTASSIUM 3.4 mmol/L (3.5-5.1)
[2024-06-19] MEDS: METHYLPREDNISOLONE SOD SUCC 40 MG/ML VIAL 1ML IV ONE (10:09)
[2024-06-19] MEDS: POTASSIUM CHLORIDE 10MEQ EA PO ONE (10:09)
[2024-06-20 05:12] LABS: BASOPHILS % 0.1 % (0.0-1.0); EOSINOPHILS % 0.1 % (0.0-6.0); HEMATOCRIT 32.8 % (38.2-49.6); LYMPHOCYTES % 11.7 % (18.0-39.1); MEAN CORPUSCULAR HEMOGLOBIN 31.6 pg (28-32); MEAN CORPUSCULAR HGB CONC 33.5 g/dL (31-35); MEAN CORPUSCULAR VOLUME 94.3 fL (81-99); MONOCYTES # (AUTO) 0.8 (0.2-0.8); MONOCYTES % 9.7 % (4.4-11.3); NEUTROPHILS # (AUTO) 6.4 (2.1-6.9); NEUTROPHILS % 77.9 % (38.7-80.0); PLATELET COUNT 128 x10e3/uL (140-360); RED BLOOD COUNT 3.48 x10e6/uL (4.3-5.7); RED CELL DISTRIBUTION WIDTH 13.5 % (11.7-14.4); WHITE BLOOD COUNT 8.15 x10e3/uL (4.8-10.8)
[2024-06-20 05:21] VITALS: BP 110/76; PULSE 68; RESP 18; TEMP 97.6; O2SAT 95
[2024-06-20 05:43] LABS: ANION GAP 9.8 mmol/L (8-16); CALCIUM 7.9 mg/dL (8.4-10.2); CREATININE, SERUM 1.13 mg/dL (0.72-1.25); POTASSIUM 3.8 mmol/L (3.5-5.1)
[2024-06-20 08:02] VITALS: PULSE 88; RESP 18; O2SAT 94
[2024-06-20 08:47] VITALS: BP 117/74; PULSE 74; RESP 18; TEMP 97.7; O2SAT 99
[2024-06-20 08:48] VITALS: BP 117/74; PULSE 74; RESP 18; TEMP 97.7; O2SAT 99
[2024-06-20 12:36] VITALS: BP 92/71; PULSE 75; RESP 20; TEMP 98.1; O2SAT 94
[2024-06-20 16:00] VITALS: BP 100/61; PULSE 72; RESP 20; TEMP 97.2; O2SAT 98
[2024-06-20] MEDS ORDERED: ALDACTONE100 MG PO (19:15)
[2024-06-21] MEDS ORDERED: METOPROLOL SUCCINATE 50 MG TAB XL PO SCH (09:00)
== END 2024-06-20 20:45 | disposition home or self-care (01) | DRG 432 ==
LOC: ER 23:17 → ERHOLD 06-14 01:32 → ICU 06-14 03:21 → MED/SURG 06-14 16:04
PROVIDERS: ADMIT Internal Medicine; ATTEND Internal Medicine
DX: K74.69 Other cirrhosis of liver (principal); K65.2 Spontaneous bacterial peritonitis; E87.20 Acidosis, unspecified; N17.9 Acute kidney failure, unspecified; Z68.43 Body mass index [BMI] 50.0-59.9, adult; I50.32 Chronic diastolic (congestive) heart failure; R18.8 Other ascites; I85.10 Secondary esophageal varices without bleeding; K62.5 Hemorrhage of anus and rectum; K76.6 Portal hypertension; E66.01 Morbid (severe) obesity due to excess calories; I11.0 Hypertensive heart disease with heart failure; K72.10 Chronic hepatic failure without coma; Z99.81 Dependence on supplemental oxygen; Z11.52 Encounter for screening for COVID-19; E11.9 Type 2 diabetes mellitus without complications; J44.89 Other specified chronic obstructive pulmonary disease; I48.0 Paroxysmal atrial fibrillation; K21.9 Gastro-esophageal reflux disease without esophagitis; E78.5 Hyperlipidemia, unspecified; I35.0 Nonrheumatic aortic (valve) stenosis; E87.6 Hypokalemia; E83.42 Hypomagnesemia; R09.02 Hypoxemia; K59.00 Constipation, unspecified; I87.2 Venous insufficiency (chronic) (peripheral); R10.30 Lower abdominal pain, unspecified; M54.9 Dorsalgia, unspecified; Z79.01 Long term (current) use of anticoagulants; Z79.51 Long term (current) use of inhaled steroids; Z79.52 Long term (current) use of systemic steroids; Z86.19 Personal history of other infectious and parasitic diseases; Z88.1 Allergy status to other antibiotic agents; Z88.8 Allergy status to other drugs, medicaments and biological substances
CPT/HCPCS: 36415; 71045; 74177; 74470; 76705; 80048; 80053; 80061; 82105; 82140; 82550; 83605; 83690; 83735; 83880; 84100; 84443; 84484; 85025; 85610; 85730; 87040; 87086; 87522; 93005; 93306; 94664; 94799; 99252; 99284; J2270; J2470; J2543; J2919; J3475; J3480; J7030; J7050; Q9967